=== PATIENT | female | born 1980 | race Caucasian/White ===

== ENCOUNTER 2022-12-18 11:56 | Outpatient (OUT) | payer MEDICARE, SELFPAY ==
[2022-12-18 12:57] LABS: Basophils Absolute Auto 0.1 10^3/uL (0.0-0.1); Basophils Percent Auto 1.3 % (0.2-2.0); Eosinophils Absolute Auto 0.2 10^3/uL (0.0-0.7); Eosinophils Percent Auto 3.3 % (0.9-7.0); Hematocrit 42.4 % (36.0-48.0); Immature Granulocytes Abs Auto 0.04 10^3/uL (0.00-0.03); Immature Granulocytes Pct Auto 0.6 % (0.0-0.5); Lymphocytes Absolute Auto 2.5 10^3/uL (1.2-3.8); Lymphocytes Percent Auto 39.7 % (20.5-60.0); Mean Corpuscular Hemoglobin 30.5 pg (26.7-34.0); Mean Corpuscular Volume 92.4 fL (81.0-99.0); Mean Platelet Volume 8.8 fL (9.5-13.5); Monocytes Absolute Auto 0.4 10^3/uL (0.3-0.8); Monocytes Percent Auto 6.4 % (1.7-12.0); Neutrophils Absolute Auto 3.1 10^3/uL (1.4-6.5); Neutrophils Percent Auto 48.7 % (43.0-75.0); Platelet Count 262 10^3/uL (150-450); Red Blood Count 4.59 10^6/uL (4.20-5.40); White Blood Count 6.4 10^3/uL (4.0-11.0)
[2022-12-18 13:19] LABS: Estimated Average Glucose 105 mg/dL; Glycohemoglobin A1C 5.3 % (4.5-6.2)
[2022-12-18 13:33] LABS: Alanine Aminotransferase 45 U/L (14-59); Albumin Level 3.7 g/dL (3.4-5.0); Alkaline Phosphatase 84 U/L (46-116); Anion Gap 12.4; Aspartate Amino Transferase 25 U/L (15-37); Bilirubin Total 0.6 mg/dL (0.2-1.0); Calcium 8.7 mg/dL (8.5-10.1); Carbon Dioxide 25.8 mmol/L (21.0-32.0); Chloride 105 mmol/L (98-107); Chol HDL Ratio 5.5; Cholesterol 204 mg/dL (<=200); Estimated GFR (African America >60 (>=60); Estimated GFR (Non-African Ame >60 (>=60); Globulin 3.6 g/dL; Glucose 90 mg/dL (74-106); HDL Cholesterol 37 mg/dL (40-60); Potassium 4.2 mmol/L (3.5-5.1); Sodium 139 mmol/L (136-145); Thyroid Stimulating Hormone 4.414 uIU/mL (0.358-3.740); Total Protein 7.3 g/dL (6.4-8.2); Triglycerides 202 mg/dL (<=150); VLDL CHOLESTEROL 40.4 mg/dL
[2022-12-19 11:14] LABS: Insulin 16.3 uIU/mL (2.6-24.9)
== END 2022-12-18 11:57 | disposition home or self-care (01) ==
LOC: LAB 12:05
DX: E03.9 Hypothyroidism, unspecified (principal); E16.1 Other hypoglycemia; E78.2 Mixed hyperlipidemia
CPT/HCPCS: 36415; 80053; 80061; 83036; 83525; 84436; 84443; 85025

== ENCOUNTER 2024-02-11 22:16 | Emergency (ER) | payer OTHER, MEDICARE, MEDICAID, SELFPAY ==
[2024-02-11 22:22] VITALS: BP 149/101; PULSE 95; TEMP 36.8; O2SAT 98; BMI 33.0
[2024-02-11] MEDS: LIDOCAINE HCL 1% PF 20 MG/2 ML VIAL 5 ML INJ (22:49)
[2024-02-11] MEDS: LIDOCAINE/EPINEPHRINE/TETRACAINE 3 ML GEL.PF.APP 1.5 ML TOPICAL (22:49)
[2024-02-11] MEDS: ADACEL DIPH,PERTUSS(ACELL),TET VAC/PF 0.5 ML ADULT SYRINGE IM (23:43)
--- NOTE | 2024-02-12 00:17 | ED_ITS ---
HPI HPI - General Adult General Chief complaint: Wound/Laceration Stated complaint: upper extremity injury-[facility] Time Seen by Provider: 02/11/24 22:23 Source: patient Mode of arrival: walk-in History of Present Illness HPI narrative: 43-year-old female to the emergency department with chief complaint of fingertip avulsion. Patient reports that she was at work slicing some potatoes on a mandolin slicer when she accidentally sliced her finger. She reports has been bleeding ever since. Injury occurred approximately 30 minutes prior to arrival. Last tetanus greater than 10 years. No other injuries. Otherwise at her baseline health. No blood thinners. Related Data Home Medications ?Medication ?Instructions ?Recorded ?Confirmed aripiprazole 5 mg tablet (Abilify) 5 mg PO DAILY 02/11/24 02/11/24 escitalopram oxalate 10 mg tablet 10 mg PO QDAY 02/11/24 02/11/24 levothyroxine 50 mcg tablet 50 mcg PO QAM 02/11/24 02/11/24 Allergies Allergy/AdvReac Type Severity Reaction Status Date / Time diphenhydramine Allergy Unknown Verified 02/11/24 22:21 [From Benadryl] Opioid HPI Opioid Management Most Recent Opioid Data: No Data to Display Review of Systems ROS Status of ROS 10 or more systems reviewed and unremark able except as noted in history and below PFSH PFSH Social History Little interest or pleasure in doing things: not at all Feeling down, depressed, or hopeless: not at all Exam Narrative Exam Narrative: Hand exam: Radial pulses intact. Sensation intact over the hand. There is an avulsion of approximately 6 mm of the posterior lateral fifth digit tip. No bony exposure. Approximately 3 mm of nail avulsed. No pulsatile bleeding. Constitutional Vital Signs, click to edit/add: Last Vital Signs Temp 98.2 F 02/11/24 22:22 Pulse 95 H 02/11/24 22:22 Resp 16 02/11/24 22:22 BP 149/101 H 02/11/24 22:22 Pulse Ox 98 02/11/24 22:22 O2 Del Method Room Air 02/11/24 22:22 Course Vital Signs Vital signs: Vital Signs Temperature 98.2 F 02/11/24 22:22 Pulse Rate 95 H 02/11/24 22:22 Respiratory Rate 16 02/11/24 22:22 Blood Pressure 149/101 H 02/11/24 22:22 Pulse Oximetry 98 02/11/24 22:22 Oxygen Delivery Method Room Air 02/11/24 22:22 Temperature 98.2 F 02/11/24 22:22 Pulse Rate 95 H 02/11/24 22:22 Respiratory Rate 16 02/11/24 22:22 Blood Pressure 149/101 H 02/11/24 22:22 Pulse Oximetry 98 02/11/24 22:22 Oxygen Delivery Method Room Air 02/11/24 22:22 Medical Decision Making MDM Narrative Medical decision making narrative: 43-year-old female to the emergency department chief complaint of mandolin slicer fingertip avulsion. Vital stable, the patient is afebrile. Limb is neurovascularly intact. No bony involvement. There is a significant amount of capillary bleeding however. Tetanus to be updated. Wound manage as procedure note above. Bleeding was controlled. There were no complications. Work restriction given of hand must be clean and dry. Follow-up with occupational health. Return precautions were discussed. All questions were answered. The patient was discharged home. Discharge Plan Discharge Chief Complaint: Wound/Laceration Clinical Impression: Fingertip avulsion Patient Disposition: Home, Self-Care Time of Disposition Decision: 23:42 Condition: Good Mode of Transportation: Private Vehicle Prescriptions / Home Meds: No Action escitalopram oxalate 10 mg tablet 10 mg PO QDAY levothyroxine 50 mcg tablet 50 mcg PO QAM aripiprazole [Abilify] 5 mg tablet 5 mg PO DAILY Print Language: Hungarian Instructions: Finger Laceration (ED) Additional Instructions: Keep finger clean and dry. May return to work otherwise. Referrals: [facility] - 1 week (Follow-up for wound eval and workman's comp claim) Discharge Date/Time: 02/12/24 00:00 Procedures ED Procedure Instructions Procedures Procedures: Procedure: Laceration Repair Indication: Fingertip avulsion Contraindication: None Verbal consent was obtained. Finger base was prepped with chlorhexidine. Approximately 5 cc of 1% lidocaine was used to perform a digital block at 3 points. Adequate fingertip analgesia was obtained from this. A tourniquet was placed and a bloodless field was obtained. Let was applied for vasoconstriction to the wound bed. There is no nailbed laceration to repair. No bony involvement upon exploration. No tendon involvement. No foreign body. Wound was irrigated. Dry bloodless field was again obtained. Several layers of skin glue were applied and allowed to dry completely. The tourniquet was let down and there is no further bleeding. Blood flow return to the digit. Cap refill intact. Patient tolerated the procedure and there were no complications. Td Levy DO, FAAEM
== END 2024-02-12 | disposition home or self-care (01) ==
PROVIDERS: Emergency Provider Student in an Organized Health Care Education/Training Program
DX: S61.206A Unspecified open wound of right little finger without damage to nail, initial encounter (principal); W26.8XXA Contact with other sharp object(s), not elsewhere classified, initial encounter; Z23 Encounter for immunization
CPT/HCPCS: 12001; 90471; 90715; 99284

== ENCOUNTER 2024-07-08 07:52 | Emergency (ER) | payer MEDICARE, SELFPAY ==
[2024-07-08 07:57] VITALS: BP 136/89; PULSE 118; TEMP 37.3; O2SAT 98; BMI 29.1
--- OUTSIDE RECORDS SUMMARY | 2024-07-08 08:05 | XMS_ITS | CCD ---
Author Organization [facility] Care Team Providers Care Rewrite Editor Name Role Phone BRIT HURD Unavailable Unavailable BLOOD, MORRIS Polanco Unavailable Unavailable BLOOD, MORRIS Polanco Unavailable Unavailable ROSEMARY TAVERA Unavailable Unavaillv e Unavailable Primary Care Provider UnavailChuck Barbosa Unavailable NON STAFF Primary Care Provider UnavailMD Chuck Barbosa Attending Provider NON STAFF Primary Care Provider UnavailMD Chuck Barbosa Attending Provider LY BOYLE Referring Unavailable SCHEFRENCHTER, JAZMYNE Primary Care Unavailable LY BOYLE Attending Unavailable JAZMYNE SCOTT Referring Unavailable SCHEFRENCHTER, JAZMYNE Primary Care Unavailable JAZMYNE SCOTT Attending Unavailable SCHEFRENCHTJAZMYNE DEJESUS Referring Unavailable SCHLACHTER, JAZMYNE Primary Care Unavailable JAZMYNE SCOTT Attending Unavailable JAZMYNE SCOTT Referring Unavailable SCHEFRENCHTER, JAZMYNE Primary Care Unavailable LY BOYLE Attending Unavailable GRECIAERJAZMYNE Referring Unavailable SCHLACHTER, JAZMYNE Primary Care Unavailable Rocky Sandoval Attending Unavailab le Rocky Sandoval Admitting Unavailab le NON STAFF Primary Care Unavailable Medications Current Medications Medication Drug Class(es) Dates Sig (Normalized) Sig (Original) ARIPiprazole 5 mg oral tablet (1 source) Atypical Antipsychotic Start: 03-31-2023 take 5 mg by mouth once daily Aripiprazole Active 5 MG PO Daily March 31, 2023 12:00am escitalopram 10 mg oral tablet (3 sources) Serotonin Reuptake Inhibitor Start: 03-31-2023 take 10 mg by mouth once daily Escitalopram Oxalate Active 10 MG PO Daily March 31, 2023 12:00am levothyroxine sodium 0.05 mg oral tablet (3 sources) l-Thyroxine Start: 03-31-2023 take 50 ug by mouth once daily Levothyroxine Active 50 MCG PO Daily March 31, 2023 12:00am Levothyroxine So dium 50 MCG Oral for 90 Days Active Problems Problem Classification Problem Date Documented Da te Episodic/Chronic Anxiety disorders (1 source) Anxiety disorder, unspecified; Translations: [Anxiety disorder, unspecified] Onset: 01-12-2024 Chronic Disorders of lipid metabolism (1 source) Mixed hyperlipidemia; Translations: [Mixed hyperlipidemia] Onset: 01-12-2024 Chronic Hemorrhoids (1 source) Unspecified hemorrhoids Episodic Menstrual disorders (1 source) Amenorrhea Onset: 05-26-2023 Chronic Mood disorders (1 source) Mood disorders; Translations: [Depression, unspecified] Onset: 01-12-2024 Other endocrine disorders (1 source) Other hypoglycemia; Translations: [Other hypoglycemia] Onset: 10-30-2017 Chronic Other female genital disorders (2 sources) Other specified abnormal uterine and vaginal bleeding; Translations: [Other specified abnormal uterine and vaginal bleeding] Onset: 05-05-2023 Chronic Other gastrointestinal disorders (2 sources) Diarrhea; Translations: [Diarrhea, unspecified] Episodic Other gastrointestinal disorders (1 source) Diarrhea, unspecified Episodic Other nutritional; endocrine; and metabolic disorders (1 source) Morbid (severe) obesity due to excess calories; Translations: [Morbid (severe) obesity due to excess calories] Onset: 01-05-2020 Chronic Other screening for suspected conditions (not mental disorders or infectious disease) (1 source) Encounter for screening mammogram for malignant neoplasm of breast; Translations: [Encounter for screening mammogram for malignant neoplasm of breast] Onset: 01-12-2024 Episodic Substance-related disorders (2 sources) Other psychoactive substance abuse, uncomplicated; Translations: [Opioid dependence, uncomplicated] Onset: 01-12-2024 Chronic Substance-related disorders (1 source) Poisoning by heroin, accidental (unintentional), initial encounter; Translations: [Poisoning by heroin, accidental (unintentional), initial encounter] Onset: 11-26-2017 Thyroid disorders (1 source) Hypothyroidism, unspecified; Translations: [Hypothyroidism, unspecified] Onset: 01-12-2024 Chronic Unclassified (1 source) Annual Exam Onset: 01-12-2024 Unclassified (1 source) Menstrual Problem Onset: 05-05-2023 Results Test Name Value Interpretation Reference Range Facility COMPLETE BLOOD COUNTon 05-26 Erythrocyte distribution width (RBC) [Ratio] 14.1 % Normal 11.5-15.0 [facility] Comment on above: Performed By: #### 2 842-3, 49207-4, 59164-8, CBC #### [facility] ([id number]) [address], [address] [place] [address] Hematocrit (Bld) [Volume fraction] 39.7 % Normal 35-47 [facility] Comment on above: Performed By: #### 2 842-3, 82497-5, 32415-2, CBC #### [facility] ([id number]) [address], [address] [place] [address] Hemoglobin (Bld) [Mass/Vol] 13.5 g/dL Normal 11.7-15.5 [facility] Comment on above: Performed By: #### 2 842-3, 22764-4, 91275-8, CBC #### [facility] ([id number]) [address], [facility] [address] [place] [address] MCH (RBC) [Entitic mass] 30.3 pg Normal 27-34 [facility] Comment on above: Performed By: #### 2 842-3, 40941-3, 66393-5, CBC #### [facility] ([id number]) [address], [facility] [address] [place] [address] MCHC (RBC) [Mass/Vol] 33.9 g/dL Normal 32-36 [facility] Comment on above: Performed By: #### 2 842-3, 56489-9, 00369-8, CBC #### [facility] ([id number]) [address], [address] [place] [address] MCV (RBC) [Entitic vol] 89 fL Normal 80-100 P [facility] Comment on above: Performed By: #### 2 842-3, 91873-4, 71762-0, CBC #### [facility] ([id number]) [address], [address] [place] [address] Platelet mean volume (Bld) [Entitic vol] 6.7 fL Low 7-12 [facility] Comment on above: Performed By: #### 2 842-3, 83531-4, 58996-1, CBC #### [facility] ([id number]) [address], [address] [place] [address] Platelets (Bld) [#/Vol] 338 10*3/uL Normal 150-450 [facility] Comment on above: Performed By: #### 2 842-3, 71386-2, 12226-3, CBC #### [facility] ([id number]) [address], [address] [place] [address] RBC COUNT 4.44 X10E12/L Normal 3.80-5.20 [facility] Comment on above: Performed By: #### 2 842-3, 73472-5, 22948-4, CBC #### [facility] ([id number]) [address], [address] [place] [address] WBC (Bld) [#/Vol] 7.2 10*3/uL Normal 4.0-11.0 [facility] Comment on above: Performed By: #### 2 842-3, 44950-7, 38528-1, CBC #### [facility] ([id number]) [address], [address] [place] [address] Follitropin Qnon 05-26-2023 FOLLICLE STIM HORMONE 5.1 mIU/mL Normal [facility] Comment on above: Result Comment: NORMAL FEMALE Luteal 1.8-5.1 mIU/mL Follicular 3.8-8.8 mIU/mL Mid Cycle 4.5-22.5 mIU/mL Post Sara 16.7-113.6 mIU/mL Performed By: #### 2 842-3, 90504-7, 14770-4, CBC #### [facility] ([id number]) [address], [address] [place] [address] Lutropin Qnon 05-26-2023 LUTEINIZING HORMONE 5.3 mIU/mL Normal [facility] Comment on above: Result Comment: NORMAL FEMALE Follicular 2.1-10.9 mIU/mL Mid Cycle 19.2-103 mIU/mL Luteal 1.2-12.9 mIU/mL Post Bardolph 10.9-58.6 mIU/mL Performed By: #### 2 842-3, 38209-1, 76029-7, CBC #### [facility] ([id number]) [address], [address] [place] [address] Prolactin [Mass/Vol]on 05-26 PROLACTIN 7.8 ng/mL Normal 3.3-26.7 [facility] Comment on above: Performed By: #### 2 842-3, 85808-9, 98070-5, CBC #### [facility] ([id number]) [address], [address] [place] [address] HCG ( test) Kenyetta millan Ql (U)Ordered By: Chuck Souza on 03-31-2023 HCG ( test) Ql (U) Negative [facility] No Panel InformationOrdered By: Chuck Souza on 03-31-2023 Ova and Parasite Result 1 N/A [facility] Ova or parasites identificat ionOrdered By: Imad Asaad on 03-31-2023 Ova and parasites identified LM Nom (Unsp spec) N/A [facility] Stool ova and parasites iden tification by concentrationOrdered By: Imad Asaad on 03-31-2023 Ova and parasites identified Concentration Nom (Stl) N/A [facility] Stool ova and parasites iden tification by trichrome stainOrdered By: Imad Asaad on 03-31-2023 Ova and parasites identified Trichrome stain Nom (Stl) N/A [facility] C reactive protein [Mass/vol ume] in Serum or PlasmaOrdered By: Imad Asaad on 03-26-2023 CRP [Mass/Vol] 1.5 mg/dL 0.0-0.5 [facility] Erythrocyte sedimentation ra te by Photometric methodOrdered By: ad Asaad on 03-26-2023 ESR Photometric method (Bld) [Velocity] 17 mm/hr 0-14 [facility] HIV 1 and HIV-2 antibody ass ay with HIV-1 p24 antigen detectionOrdered By: Imad Asaad on 03-26-2023 HIV 1+2 Ab+HIV1 p24 Ag IA Ql Non-Reactive Non Reactive [facility] Comment on above: HIV NegativeHIV-1/HI V-2 antibodies and HIV-1 p24 antigen were NOTdetected. There is no laboratory evidence of HIV infection.Performed at: [address] [id number] Director: Terell Hoyos PhD, Phone: [phone] IgA [Mass/volume] in Serum o r PlasmaOrdered By: ad Asaad on 03-26-2023 IgA [Mass/Vol] 255 mg/dL . [facility] Comment on above: No patient age and/o r gender provided or N placed in gender box Age Male Female 0 - 10 days 2 - 362 2 - 362 11 days - 6 months 8 - 37 8 - 32 7 - 11 months 12 - 58 11 - 45 1 - 3 years 21 - 111 19 - 102 4 - 15 years 52 - 221 51 - 220 16 - 60 years 90 - 386 87 - 352 61 - 70 years 61 - 437 87 - 352 >70 years 61 - 437 64 - 422Performed at: - [facility] [address] [place], [place] [id number] Director: Terell Hoyos PhD, Phone: [phone] No Panel InformationOrdered By: Chuck Souza on 03-26-2023 Endomysial IgA Antibody Negative Negative F [facility] Serum gliadin peptide IgA an tibody assay (units/volume)Ordered By: Chuck Souza on 03-26-2023 Gliadin peptide IgA Qn (S) 26 units 0-19 [facility] Comment on above: Negative 0 - 19 Weak Positive 20 - 30 Moderate to Strong Positive >30 Serum gliadin peptide IgG an tibody assay (units/volume)Ordered By: Chuck Souza on 03-26-2023 Gliadin peptide IgG Qn (S) 2 units 0-19 [facility] Comment on above: Negative 0 - 19 Weak Positive 20 - 30 Moderate to Strong Positive >30 Serum tissue transglutaminas e (tTG) IgA antibody assay (units/volume)Ordered By: Chuck Souza on 03-26-2023 tTG IgA Qn (S) 2 U/mL 0-3 [facility] Comment on above: Negative 0 - 3 Weak Positive 4 - 10 Positive >10 Tissue Transglutaminase (tTG) has been identified as the endomysial antigen. Studies have demonstr- ated that endomysial IgA antibodies have over 99% specificity for gluten sensitive enteropathy. Serum tissue transglutaminas e (tTG) IgG antibody assay (units/volume)Ordered By: Chuck Souza on 03-26-2023 tTG IgG Qn (S) 3 U/mL 0-5 [facility] Comment on above: Negative 0 - 5 Weak Positive 6 - 9 Positive >9 Thyrotropin [Units/volume] i n Serum or PlasmaOrdered By: Chuck Souza on 03-26-2023 TSH Qn 4.27 m[IU]/L 0.45-5.33 [facility] Acetaminophenon 11-27-2017 Acetaminophen mass conc <10 Low 10-30 M [facility] Comment on above: Performed By: #### A CET ####[facility] [address] [place] [address] CBCon 11-27-2017 Erythrocyte distribution width Auto Ratio (RBC) 13.3 % Normal 11.5-14.5 [facility] Comment on above: Performed By: #### C BC, MG, CMPX ####[address] [address] Erythrocytes (RBC) 3.76 10*6/uL Low 4.0-5.2 [facility] Comment on above: Performed By: #### C BC, MG, CMPX ####[address] [address] Hematocrit (HCT) 34.9 % Low 36-46 [facility] Comment on above: Performed By: #### C BC, MG, CMPX ####[address] [address] Hemoglobin mass conc (Bld) 11.5 g/dL Low 12.0-16.0 [facility] Comment on above: Performed By: #### C BC, MG, CMPX ####[address] [address] MCH 30.7 pg Normal 26-34 [facility] Comment on above: Performed By: #### C BC, MG, CMPX ####[address] [address] MCHC mass conc (RBC) 33.0 g/dL Normal 31-37 [facility] Comment on above: Performed By: #### C BC, MG, CMPX ####[address] [address] MCV 93.0 fL Normal 80-100 [facility] Comment on above: Performed By: #### C BC, MG, CMPX ####[facility] [place] [address] Platelet mean volume (PMV) 6.9 fL Normal 6.0-12.0 [facility] Comment on above: Performed By: #### C BC, MG, CMPX ####[address] [address] Platelets 226 10*3/uL Normal 130-400 [facility] Comment on above: Performed By: #### C BC, MG, CMPX ####[address] [address] WBC (Leukocytes) 6.7 10*3/uL Normal 3.5-11.0 [facility] Comment on above: Performed By: #### C BC, MG, CMPX ####[address] [address] Erythrocytes (RBC) NOT REPORTED Normal [facility] Comment on above: Performed By: #### C BC, MG, CMPX ####[address] [address] Comp Metabolic Pr/rfx MGon 0 11-27-2017 (cont.) Normal [facility] Comment on above: Result Comment: Aver age GFR for 30-39 years old: 107 mL/min/1.73sq mChronic Kidney Disease: <60 mL/min/1.73sq mKidney failure: <15 mL/min/1.73sq meGFR calculated using average adult body mass. Additional eGFR calculator available at:http://www.[employer].com/multiple_crcl_2012.htm Performed By: #### C BC, MG, CMPX ####[address] [address] Alanine aminotransferase (ALT) 29 U/L Normal 5-33 [facility] Comment on above: Performed By: #### C BC, MG, CMPX ####[address] [address] Albumin 3.5 g/dL Normal 3.5-5.2 [facility] Comment on above: Performed By: #### C BC, MG, CMPX ####[address] [address] Alkaline Phos 81 U/L Normal 35-104 [facility] Comment on above: Performed By: #### C BC, MG, CMPX ####[address] [address] Anion gap 9 mmol/L Normal 9-17 [facility] Comment on above: Performed By: #### C BC, MG, CMPX ####[address] [address] Aspartate aminotransferase (AST) 37 U/L High <32 [facility] Comment on above: Performed By: #### C BC, MG, CMPX ####[address] [address] Bilirubin Ql (U) 0.40 mg/dL Normal 0.3-1.2 [facility] Comment on above: Performed By: #### C BC, MG, CMPX ####[address] [address] BUN/CRE Ratio 14 Normal 9-20 [facility] Comment on above: Performed By: #### C BC, MG, CMPX ####[address] [address] Calcium 8.2 mg/dL Low 8.6-10.4 [facility] Comment on above: Performed By: #### C BC, MG, CMPX ####[facility] [place] [address].[place] [address] Chloride 100 mmol/L Normal 98-107 [facility] Comment on above: Performed By: #### C BC, MG, CMPX ####[address] [place] [address] CO2 28 mmol/L Normal 20-31 [facility] Comment on above: Performed By: #### C BC, MG, CMPX ####[address] [place] [address] Creatinine 0.63 mg/dL Normal 0.50-0.90 [facility] Comment on above: Performed By: #### C BC, MG, CMPX ####[address] [address] eGFR (non-black) mL/min/{1.73_m2} Normal >60 [facility] Comment on above: Performed By: #### C BC, MG, CMPX ####[address] [place] [address] Glucose mass conc 107 mg/dL High 70-99 [facility] Comment on above: Performed By: #### C BC, MG, CMPX ####[address] [place] [address] Potassium molar conc 3.5 mmol/L Low 3.7-5.3 [facility] Comment on above: Performed By: #### C BC, MG, CMPX ####[address] [place] [address] Protein 5.4 g/dL Low 6.4-8.3 [facility] Comment on above: Performed By: #### C BC, MG, CMPX ####[address] [place] [address] Sodium 137 mmol/L Normal 135-144 [facility] Comment on above: Performed By: #### C BC, MG, CMPX ####[address] [address] Urea nitrogen 9 mg/dL Normal 6-20 [facility] Comment on above: Performed By: #### C BC, MG, CMPX ####[address] [address] Albumin/Globulin Ratio NOT REPORTED Normal 1.0-2.5 [facility] Comment on above: Performed By: #### C BC, MG, CMPX ####[address] [address] Staging: NOT REPORTED Normal [facility] Comment on above: Performed By: #### C BC, MG, CMPX ####[address] [address] Magnesiumon 11-27-2017 Magnesium 1.9 mg/dL Normal 1.6-2.6 [facility] Comment on above: Performed By: #### C BC, MG, CMPX ####[address] [address] Basic Metabolic Profon 11-262018 (cont.) Normal [facility] Comment on above: Result Comment: Aver age GFR for 30-39 years old: 107 mL/min/1.73sq mChronic Kidney Disease: <60 mL/min/1.73sq mKidney failure: <15 mL/min/1.73sq meGFR calculated using average adult body mass. Additional eGFR calculator available at:http://www.[employer].com/multiple_crcl_2012.htm Anion gap 10 mmol/L Normal 9-17 [facility] Calcium 8.7 mg/dL Normal 8.6-10.4 [facility] Chloride 104 mmol/L Normal 98-107 [facility] CO2 29 mmol/L Normal 20-31 [facility] Creatinine 0.70 mg/dL Normal 0.50-0.90 [facility] eGFR (non-black) mL/min/{1.73_m2} Normal >60 [facility] Glucose mass conc 96 mg/dL Normal 70-99 [facility] Potassium molar conc 3.6 mmol/L Low 3.7-5.3 [facility] Sodium 143 mmol/L Normal 135-144 [facility] Urea nitrogen 11 mg/dL Normal 6-20 [facility] BUN/CRE Ratio NOT REPORTED Normal 9-20 [facility] Staging: NOT REPORTED Normal [facility] CBC with Diffon 11-26-2017 Abs. Basophil 0.00 k/uL Normal 0.0-0.2 [facility] Abs.Neutrophil (Seg) 2.60 k/uL Normal 1.8-7.7 [facility] Basophils/100 WBC Auto (Bld) 1 % Normal 0-2 [facility] Eosinophils 0.10 10*3/uL Normal 0.0-0.4 [facility] Eosinophils/100 leukocytes 3 % Normal 1-4 [facility] Erythrocyte distribution width Auto Ratio (RBC) 13.3 % Normal 12.5-15.4 [facility] Erythrocytes (RBC) 4.10 10*6/uL Normal 4.0-5.2 [facility] Hematocrit (HCT) 37.9 % Normal 36-46 [facility] Hemoglobin mass conc (Bld) 12.6 g/dL Normal 12.0-16.0 [facility] Lymphocytes 2.00 10*3/uL Normal 1.0-4.8 [facility] Lymphocytes/100 leukocytes 39 % Normal 24-44 [facility] MCH 30.7 pg Normal 26-34 [facility] MCHC mass conc (RBC) 33.3 g/dL Normal 31-37 [facility] MCV 92.2 fL Normal 80-100 [facility] Monocytes 0.40 10*3/uL Normal 0.1-1.2 [facility] Monocytes/100 leukocytes 8 % Normal 2-11 [facility] Neutrophil (Seg) 49 % Normal 36-66 [facility] Platelet mean volume (PMV) 7.4 fL Normal 6.0-12.0 [facility] Platelets 262 10*3/uL Normal 140-450 [facility] WBC (Leukocytes) 5.2 10*3/uL Normal 3.5-11.0 [facility] Auto Diff Performed NOT REPORTED Normal [facility] Erythrocyte morphology NOT REPORTED Normal [facility] Erythrocytes (RBC) NOT REPORTED Normal [facility] Granulocytes/100 WBC (Bld) NOT REPORTED Normal 0.00-0.30 [facility] Immature granulocytes #/vol (Bld) NOT REPORTED Normal 0 [facility] Platelets NOT REPORTED Normal [facility] WBC Morphology NOT REPORTED Normal [facility] Drug Scr, Abuse, Uron 2017 Amphetamine(s),Ur Negative Normal NEG [facility] Comment on above: Result Comment: (Pos itive cutoff 1000 ng/mL) Barbiturate(s),Ur Negative Normal NEG [facility] Comment on above: Result Comment: (Pos itive cutoff 200 ng/mL) Base excess Positive Abnormal NEG [facility] Comment on above: Result Comment: (Pos itive cutoff 300 ng/mL) Benzodiazepine(s) Negative Normal NEG [facility] Comment on above: Result Comment: (Pos itive cutoff 200 ng/mL) Cannabinoid(s),Ur Negative Normal NEG [facility] Comment on above: Result Comment: (Pos itive cutoff 50 ng/mL) Interpretive Info Assay provides medic al screening only. The absence of expected drug(s) and/or Normal [facility] Comment on above: Result Comment: meta bolite(s) may indicate diluted or adulterated urine, limitations of testing or timing of collection.Testing for legal purposes should be confirmed by another method. To request confirmation of test result, please call the lab within 7 days of sample submission. Opiate(s), Ur Positive Abnormal NEG [facility] Comment on above: Result Comment: (Pos itive cutoff 300 ng/mL) Oxycodone, Urine Negative Normal NEG [facility] Comment on above: Result Comment: (Pos itive cutoff 100 ng/mL) Phencyclidine, Ur Negative Normal NEG [facility] Comment on above: Result Comment: (Pos itive cutoff 25 ng/mL) Urine, methadone presence Negative Normal NEG [facility] Comment on above: Result Comment: (Pos itive cutoff 300 ng/mL) Buprenorphrine, Ur NOT REPORTED Normal NEG [facility] MDMA, Urine NOT REPORTED Normal NEG [facility] Methamphetamine, Ur NOT REPORTED Normal NEG [facility] Propoxyphene,Urine NOT REPORTED Normal NEG [facility] Urine, tricyclic antidepressants NOT REPORTED Normal NEG [facility] Ethanol Alcoholon 11-26-2017 Ethanol mg/dL Normal <10 [facility] Ethanol percent <0.010 Normal [facility] HCG, ,Urineon 11-26 HCG.beta subunit ( test) Ql (U) Negative Normal NEG [facility] Comment on above: Result Comment: Spec imens with hCG levels near the threshold of the test (25 mIU/mL) may give a negative or indeterminate result. In such cases, another test should be performed with a new specimen in 48-72 hours. If early is suspected clinically in this setting, correlation with quantitative serum b-hCG level is suggested. XR CHEST PORTABLEon 11-27-19 18 XR CHEST PORTABLE EXAMINATION:SINGLE X RAY VIEW OF THE CHEST11/26/2017 8:52 pmCOMPARISON:None.HISTO RY:ORDERING SYSTEM PROVIDED HISTORY: overdoseTECHNOLOGIST PROVIDED HISTORY:Reason for exam:->overdoseOrdering Physician Provided Reason for Exam: heroin overdoseAcuity: AcuteType of Exam: InitialAdditional signs and symptoms: NARelevant Medical/Surgical History: NAFINDINGS:No infiltrate or consolidation or effusion is identified. The heart size isnormal.IMPRESSION: Clear lungs.Interpreted by:HOSEA Houigned by:Junior Cortez MD11/26/17inal result Normal [facility] Vital Signs Date Time Vital Sign Value Performing Clinician Facility 03-31-2023 10:19-0500 Diastolic blood pressure 68 mm[Hg] [facility] 03-31-2023 10:19-0500 Heart rate 69 /min [facility] 03-31-2023 10:19-0500 Respiratory rate 16 /min [facility] 03-31-2023 10:19-0500 SaO2% (BldA) [Mass fraction] 96 % [facility] 03-31-2023 10:19-0500 Systolic blood pressure 110 mm[Hg] [facility] 03-31-2023 08:14-0500 Body height 175.26 cm [facility] 03-31-2023 08:14-0500 Body weight 111.13 kg [facility] 03-02-2023 13:00-0400 Body height 175.26 cm Imad Asaad Other [facility] Other 03-02-2023 13:00-0400 Body mass index (BMI) [Ratio] 36.47 kg/m2 Imad Asaad Other [facility] Other 03-02-2023 13:00-0400 Body weight 112.04 kg Imad Asaad Other [facility] Other 03-02-2023 13:00-0400 Diastolic blood pressure 70 mm[Hg] Imad Asaad Other [facility] Other 03-02-2023 13:00-0400 Systolic blood pressure 122 mm[Hg] Imad Asaad Other [facility] Other Encounters Encounter Date Encounter Type Care Provider Facility Start: 03-30-2024 ambulatory Rocky Sandoval [facility] acility:[facility] Start: 01-12-2024 End: 01-12-2024 ambulatory [facility] Start: 01-12-2024 Encounter for genera l adult medical examination without abnormal findings [facility] Start: 06-18-2023 End: 06-18-2023 ambulatory [facility] Start: 05-26-2023 End: 05-27-2023 ambulatory [facility] Start: 05-26-2023 ambulatory [facility] Start: 05-05-2023 ambulatory [facility] Start: 04-06-2023 End: 04-06-2023 ambulatory Imad Asaad Other [facility] Other Start: 04-06-2023 Telephone encounter Imad Asaad [facility] Start: 03-31-2023 End: 03-31-2023 Admission to same day surgery center [facility] Work Phone: Start: 03-31-2023 End: 03-31-2023 ambulatory NON STAFF [facility] Work Phone: Start: 03-26-2023 End: 03-26-2023 ambulatory NON STAFF [facility] Work Phone: Start: 03-26-2023 End: 03-26-2023 Patient encounter procedure [facility] [place] Work Phone: Start: 03-02-2023 End: 03-02-2023 ambulatory Imad Asaad Other [facility] Other Start: 03-02-2023 Office outpatient ne w 45 minutes Imad Asaad [facility] Start: 06-09-2018 End: 06-09-2018 Letter encounter Raisa Schofield [facility] at [facility] Start: 04-12-2018 Patient encounter ROSEMARY SMITH IN Facility:[facility] Start: 11-26-2017 End: 11-27-2017 Evaluation and management of inpatient BRIT HURD [facility] Procedures Date Procedure Procedure Detail Performing Clinician Start: 06-18-2023 Follow-up visit Follow-up JAZMYNE SCOTT Start: 03-31-2023 Microbial ova-parasi te examination, fecal Start: 03-31-2023 Ova and Parasite Result 1 Start: 03-31-2023 Ova OR parasites identification Start: 03-31-2023 Colonoscopy Start: 11-27-2017 DISCHARGE PATIENT BRIT HURD Start: 11-27-2017 INITIATE OXYGEN THER APY PROTOCOL BRIT VICKEY Start: 11-27-2017 DIET GENERAL BRIT AUSTIN IS Start: 11-27-2017 Assay of magnesium RBIT HURD Start: 11-27-2017 Blood count complete automated BRIT HURD Start: 11-27-2017 COMPREHENSIVE METABO LIC PANEL W/ REFLEX TO MG FOR LOW K BRIT HURD Start: 11-27-2017 EKG 12-LEAD BRIT AUSTIN IS Start: 11-27-2017 EKG REPORT BRIT GUTIERREZ Start: 11-27-2017 ACETAMINOPHEN LEVEL TOD Jakob HURD Start: 11-27-2017 PATIENT STATUS (FROM ED OR OR/PROCEDURAL) BRIT VICKEY Start: 11-27-2017 INITIATE OXYGEN THER APY PROTOCOL BRIT HURD Start: 11-27-2017 NURSING COMMUNICATION T KARTHIKEYAN VICKEY Start: 11-27-2017 PLACE INTERMITTENT P NEUMATIC COMPRESSION DEVICE BRIT HURD Start: 11-27-2017 TOBACCO CESSATION EDUCATION BRIT HURD Start: 11-27-2017 ADVANCE DIET TOLE RATED (NURSING COMMUNICATION) BRIT VICKEY Start: 11-27-2017 DAILY WEIGHTS BRIT GUERRERO CIS Start: 11-27-2017 FULL CODE BRIT AUSTIN IS Start: 11-27-2017 INTAKE AND OUTPUT BRIT HURD Start: 11-27-2017 MISCELLANEOUS NURSIN G CARE ORDER (SPECIFY) BRIT HURD Start: 11-27-2017 NOTIFY PHYSICIAN (SPECIFY) BRIT HURD Start: 11-27-2017 TELEMETRY MONITORING TO DICK VICKEY Start: 11-27-2017 VITAL SIGNS BRIT AUSTIN IS Start: 11-27-2017 TRANSFER PATIENT BRIT GILBERT Start: 11-27-2017 PATIENT STATUS (DIRECT) BRIT HURD Start: 11-27-2017 PATIENT STATUS (FROM ED OR OR/PROCEDURAL) BRIT HURD Start: 11-26-2017 INSERT PERIPHERAL IV TO DICK HURD Start: 11-26-2017 Radiologic exam ches t single view BRIT HURD Start: 11-26-2017 URINE DRUG SCREEN BRIT HURD Start: 11-26-2017 Urine test visual color cmprsn meths BRIT HURD Start: 11-26-2017 Basic metabolic pane l calcium total BRIT HURD Start: 11-26-2017 Blood count complete auto&auto difrntl wbc BRIT HURD Start: 11-26-2017 ETHANOL BRIT AUSTIN IS Start: 11-26-2017 EKG 12-LEAD BRIT AUSTIN IS Start: 11-26-2017 EKG REPORT BRIT AUSTIN IS Plan of Treatment Date Care Activity Detail Author Start: 03-31-2023 Ova and Parasite Concentrate Exam Ova and Parasite Concentrate Exam [facility] Start: 03-31-2023 [facility] Start: 03-31-2023 [facility] Start: 03-26-2023 [facility] Start: 01-23-2018 Influenza vaccination INFLUENZA VACCINE (#1) [facility] Work Phone: Start: 2003 Screening for malignant neoplasm of cervix PAP SMEAR DISCUSSION [facility] Work Phone: Start: 2001 Third diphtheria, tetanus and acellular pertussis (DTaP) vaccination TDAP (ADULT) [facility] Work Phone: Start: 2000 Tetanus vaccination TETANUS [facility] Work Phone: Start: 1995 HIV screening HIV SCREENING DISCUSSION [facility] Work Phone: Bacteria identified in Stool by Culture [facility] Calprotectin [Mass/m ass] in Stool [facility] Endomysial antibody IgA level [facility] Gliadin peptide IgA Ab [Units/volume] in Serum [facility] Gliadin peptide IgG Ab [Units/volume] in Serum [facility] HIV 1+2 Ab+HIV1 p24 Ag [Presence] in Serum or Plasma by Immunoassay [facility] IgA [Mass/volume] in Serum or Plasma [facility] Tissue transglutamin ase IgA Ab [Units/volume] in Serum [facility] Tissue transglutamin ase IgG Ab [Units/volume] in Serum [facility] Payers Date Payer Category Payer Self-pay 2022 Private Health Insurance [id number] 2017 Medicare [id number] 2017 Medicaid [id number] 1980 Unknown [id number] 1980 Unknown [id number] 1980 Unknown [id number] 1980 Unknown [id number] 1980 Unknown [id number] Medicaid [id number] 2.1 [id number] Social History Date Type Detail Facility Tobacco smoking status NHIS Unknown if ever smoked [facility] Work Phone: Sex Assigned At Not on file [facility] Work Phone: Sex Assigned At Sex Assigned At Bir th [facility] Other Start: 1980 Sex Assigned At Female F [facility] Goals Date Patient Goal Desired Activity /State Procedure note 03-31-2023 Note Date & Type Note Facility 03-31-2023 Procedure note [facility] Evaluation note 03-02-2023 Note Date & Type Note Facility 03-02-2023 Evaluation note Encounter Date Diagnosis Assessment Notes Feb, Diarrhea (ICD-10 - R19.7) Feb, Hemorrhoid (ICD-10 - K64.9) [facility] [employer] Other Evaluation note Note Date & Type Note Facility Evaluation note No assessment information availa aliza [facility] Work Phone: Evaluation note Note Date & Type Note Facility Evaluation note No Information [facility] [employer] Other History and physical note Note Date & Type Note Facility History and physical note Note Date/Time March 31, 2023 9 :29am [facility] [address] [place] [address] Gastroenterology H&P Signed Patient: Nilsa Pulido MR #: [id number] : 1980 Acct:[id number] Age/Sex: 42 / F Adm Date: 3 Loc: Room: Type: [facility] Attending Dr: Chuck Souza MD Copies to: NON STAFF Chuck Souza MD~ Date of Service: 03/31/2023 HISTORY & PHYSICAL: Patient's history with special attention to the cardiovascular, pulmonary systems and the current problem was reviewed with the patient immediately prior to the procedure. Present medications and doses reviewed in the EMR. Allergies and pertinent laboratory tests were also reviewedat this time in the EMR. The physical examination, as below, was then performed. Indication, assessment and HPI: 42-year-old female here for colonoscopy for evaluation of diarrhea and hematochezia Family history of GI malignancy? No PHYSICAL EXAMINATION Mouth and Pharynx : Moist mucus membranes, normal dentition Cardiac: Regular rate, regular rhythm Pulmonary: Clear to auscultation bilaterally, no wheezing Neurological: Alert and oriented x3, no focal deficits noted Abdomen: Abdomen soft, non-tender REVIEW OF SYSTEMS Constitutional: Denies malaise, fevers Cardiovascular: Denies chest pain, palpitations Respiratory: Denies shortness of breath, wheezing Gastrointestinal: Per HPI Genitourinary: Denies dysuria, polyuria Musculoskeletal: Denies joint swelling, joint stiffness Neurological: Denies numbness, tingling Integumentary: Denies rashes, skin lesions Endocrine: Denies fatigue, weight loss Written informed consent obtained from the patient. Risks (including but not limited to perforation, infection, bloating, bleeding, need for emergent surgeryand loss of life), benefits and alternatives explained and questions answered. The patient verbalized understanding. Based on history patient is an appropriate candidate for the procedure. Chuck Souza M.D. Documented By: Chuck Souza MD 03/31/23927 Signed By: <Electronically signed by Chuck Souza MD> 03/31/23927 [facility] Work Phone: History general Narrative - Reported Note Date & Type Note Facility History general Narrative - Reported Type Medical History chronic depression Medical History Hypothyroidism Surgical History kidney stone Hospitalization History see above [facility] Other Hospital Discharge instructions Note Date & Type Note Facility Hospital Discharge instructions Additional Instructions DISCHARGE INSTRUCTIONS FOR COLONOSCOPY WHAT TO EXPECT: - You may feel full, gassy or cramping after your procedure. In some cases, this may be from a few hours to a day. Walking may help relieve the discomfort. - You should begin to recover from anesthesia within 1 hour of the procedure, however may feel groggy for the next 24 hours. DO's AND DON'Ts: - Call your doctor right away if you have a hard abdomen, severe pain, are passing lots of bright red blood or clots. - Call your doctor if you develop any rashes, hives or difficulty breathing. - Let your doctor know if you have not had a bowel movement by 3 days after your procedure. - If you take 81 mg aspirin for your heart it is safe to resume this medication. - If you take other blood thinner medications your doctor will instruct you when these can safely be resumed. - Do NOT drive for 24 hours. - Do NOT operate machinery such as power tools, lawn mowers, snow blowers, sewing machines, etc. for 24 hours. - Avoid alcoholic beverages and drugs for allergies, nerves, or sleep. - Do NOT stay alone. Do NOT leave your child unattended. - Do NOT make important personal or business decisions or sign any legal documents. - Eat solid foods and drink liquids in smaller amounts than usual until normal appetite returns. If you should experience an upset stomach, liquids high in sugar content (soda, Blaze-Aid, non-acid juices) are recommended. - You can resume normal activities tomorrow. FOLLOW UP & RECOMMENDATIONS: -Notify the doctor if you have any problems. -Repeat colonoscopy next available due to inadequate prep -Follow up pathology -Follow up in the office -Office number [phone]. [facility] Work Phone: Summary Purpose Family History No Family History Records Found Relationship Condition Age at Onset Recorded Date/T judah family member Dementia Unknown Myocardial infarction Unknown Not Specified Diabetes mellitus Unknown Advance Directives No Advanced Directives Records Found Advance Directive Response Recorded Date/ Time Advance Directives No March 26, 2023 7:11am Advance Directive Response Recorded Date/ Time Advance Directives No March 27, 2023 1:36pm Chief Complaint and Reason for Visit Chief Complaint r19.7 Chief Complaint r19.7 Diarrhea Additional Source Comments INFORMATION SOURCE (unrecogn ized section and content) DATE CREATED AUTHOR 11/27/2017 [facility] DATE CREATED AUTHOR AUTHOR'S ORGANIZ ATION 03/19/2018 [facility] DATE CREATED AUTHOR AUTHOR'S ORGANIZ ATION 05/30/2023 [facility] DATE CREATED AUTHOR AUTHOR'S ORGANIZ ATION 01/14/2024 [facility] DATE CREATED AUTHOR AUTHOR'S ORGANIZ ATION 04/05/2024 [facility] REASON FOR VISIT (unrecogniz ed section and content) PATIENT IS HERE AT [facility] Care Teams (unrecognized sec tion and content) Team Status: Active Member Role Status Dates NON STAFF Primary Care Provider Active Team Status: Inactive Member Role Status Dates NON STAFF Primary Care Provider Active Chuck Souza MD Attending Provider Active Goals (unrecognized section and content) Goals may be documented in a n alternate section FOR RECORDS PERTAINING TO PATIENTS WHO ARE OR HAVE BEEN ENROLLED IN A CHEMICAL DEPENDENCY/SUBSTANCEABUSE PROGRAM, SOME INFORMATION MAY BE OMITTED. This clinical summary was aggregated from multiple sources. Caution should be exercised in using it in the provision of clinical care. This summary normalizes information from multiple sources, and as a consequence, information in this document may materially change the coding, format and clinical context of patient data. In addition, data may be omitted in some cases. CLINICAL DECISIONS SHOULD BE BASED ON THE PRIMARY CLINICAL RECORDS. [employer] provides no warranty or guarantee of the accuracy or completeness of information in this document.
[2024-07-08 08:31] VITALS: BP 136/88; PULSE 106; O2SAT 98
--- NOTE | 2024-07-08 08:31 | ED_ITS ---
HPI HPI - General Adult General Chief complaint: Upper Respiratory Infection Stated complaint: COUGHING POSSIBLE FEVER Time Seen by Provider: 07/08/24 08:09 Source: patient Mode of arrival: walk-in History of Present Illness HPI narrative: Patient is a 44-year-old female who is presenting to the ER with chief complaint of flulike symptoms that started yesterday. Patient's had friends that have been sick as well. Patient did not get her flu shot this year. Patient has mild headache, mild myalgia, arthralgia. Patient is having intermittent hot and cold spells. No nausea, vomiting, diarrhea. Patient is having dry cough. Sinus congestion. Patient was sent from work to the ER to be evaluated. All systems are negative except as noted/marked. All systems reviewed and otherwise negative. Nurses note and vital signs reviewed and patient is not hypoxic. General: The patient appears well and in no apparent distress. Patient is resting comfortably on cart. Patient is not toxic, lethargic, or listless Skin: Warm, dry, no pallor noted. There is no rash noted. No petechiae, purpura. Head: Normocephalic, atraumatic; mild tenderness to palpation to bilateral frontal maxillary sinus. Eye: Normal conjunctiva, no drainage, EOMI. PERRL Ears, Nose, Mouth, and Throat: oral mucosa is moist. Patient has clear drainage to the posterior pharynx. Mild cobblestoning, no unilateral swelling. No bilateral anterior or posterior cervical lymphadenopathy. Airway patent. No trismus. Nares patent. Mouth without vesicles. Cardiovascular: Regular Rate and Rhythm, no murmur, gallop, rub Respiratory: Patient is in no distress, no accessory muscle use, lungs are clear to auscultation, no wheezing, rales or rhonchi Back: non-tender, GI: no tenderness Musculoskeletal: Patient has full range of motion of all of the extremities, no motor, sensory, or focal neurological deficits Neurological: A&O x4, normal speech Psychiatric: Cooperative Related Data Previous Rx's ?Medication ?Instructions ?Recorded ondansetron 4 mg disintegrating 4 mg PO Q4H PRN nausea and 07/08/24 tablet vomiting 3 days #6 tabs oseltamivir 75 mg capsule (Tamiflu) 75 mg PO BID 5 days #10 caps 07/08/24 Allergies Allergy/AdvReac Type Severity Reaction Status Date / Time diphenhydramine (From Allergy Unknown Verified 02/11/24 22:21 Benadryl) Opioid HPI Opioid Management Most Recent Opioid Data: No Data to Display PFSH PFSH Social History Little interest or pleasure in doing things: not at all Feeling down, depressed, or hopeless: not at all Exam Constitutional Vital Signs, click to edit/add: Last Vital Signs Temp 99.1 F 07/08/24 07:57 Pulse 118 H 07/08/24 07:57 Resp 18 07/08/24 07:57 BP 136/89 07/08/24 07:57 Pulse Ox 98 07/08/24 07:57 O2 Del Method Room Air 07/08/24 07:57 Course Vital Signs Vital signs: Vital Signs Temperature 99.1 F 07/08/24 07:57 Pulse Rate 118 H 07/08/24 07:57 Respiratory Rate 18 07/08/24 07:57 Blood Pressure 136/89 07/08/24 07:57 Pulse Oximetry 98 07/08/24 07:57 Oxygen Delivery Method Room Air 07/08/24 07:57 Temperature 99.1 F 07/08/24 07:57 Pulse Rate 118 H 07/08/24 07:57 Respiratory Rate 18 07/08/24 07:57 Blood Pressure 136/89 07/08/24 07:57 Pulse Oximetry 98 07/08/24 07:57 Oxygen Delivery Method Room Air 07/08/24 07:57 Medical Decision Making MDM Narrative Medical decision making narrative: Patient vital signs were rechecked, blood pressure was normal, heart rate was 106. Patient was noted to be slightly anxious during triage process. We have discussed [id number] medication to help treat all of patient's symptoms. This was discussed at bedside and also was discussed on discharge paperwork as well. Patient was sent home with a prescription for Tamiflu and Zofran. Patient understands the importance of increasing fluids with Gatorade, Powerade, water. Discharge Plan Discharge Stand Alone Forms: Work/School Release Chief Complaint: Upper Respiratory Infection Clinical Impression: Influenza, Cough, Flu-like symptoms Patient Disposition: Home, Self-Care Time of Disposition Decision: 08:26 Condition: Fair Prescriptions / Home Meds: New oseltamivir [Tamiflu] 75 mg capsule 75 mg PO BID 5 Days Qty: 10 0RF ondansetron 4 mg tablet,disintegrating 4 mg PO Q4H PRN (Reason: nausea and vomiting) 3 Days Qty: 6 0RF Print Language: Estonian Instructions: Influenza (ED) Additional Instructions: Increase fluids at home, Gatorade, Powerade, or water. Alternate using DayQuil, NyQuil, and Flonase. Add Mucinex as well as needed. Alternate Tylenol and Motrin every 4 hours to help with fever control, body aches or joint pain. Use xjyd-jlw-sagoaer vitamin C, vitamin D3, and zinc to help fight infection and help with her immune system. Referrals: Stephie Carreon NP [Primary Care Provider] - 1 week
== END 2024-07-08 08:32 | disposition home or self-care (01) ==
PROVIDERS: Emergency Provider Emergency Medicine; PCP Nurse Practitioner Family
DX: J11.1 Influenza due to unidentified influenza virus with other respiratory manifestations (principal); R05.9 Cough, unspecified; M79.10 Myalgia, unspecified site
CPT/HCPCS: 99283

== ENCOUNTER 2024-11-30 14:54 | Emergency (ER) | payer SELFPAY ==
[2024-11-30 15:02] VITALS: BP 194/100; PULSE 107; TEMP 36.7; O2SAT 97; BMI 27.4
--- NOTE | 2024-11-30 15:33 | ED_ITS ---
HPI HPI - General Adult General Chief complaint: Skin/Abscess/Foreign Body Stated complaint: RASH - NECK Time Seen by Provider: 11/30/24 15:24 Source: patient Mode of arrival: walk-in Limitations: no limitations History of Present Illness HPI narrative: 44-year-old female presents to the emergency department for rash. She reports that its on the left side of her neck and it has been there for about a week and a half. She went to an urgent care and was put on some pills, she states an antibiotic. She has rash and itching in both axilla. All of these rashes started right after using a new to her deodorant. She states she does not have a rash elsewhere on her body. Related Data Previous Rx's ?Medication ?Instructions ?Recorded prednisone 10 mg tablet See Rx Instructions .Route 0 11/30/24 .COMPLEX #30 tabs Allergies Allergy/AdvReac Type Severity Reaction Status Date / Time No Known Drug Allergies Allergy Verified 11/30/24 15:08 Opioid HPI Opioid Management Most Recent Opioid Data: Last Pain Scale 10 Today, 15:02 Review of Systems ROS Narrative A ten point review of systems is negative except as noted above. PFSH PFSH Social History Little interest or pleasure in doing things: not at all Feeling down, depressed, or hopeless: not at all Exam Narrative Exam Narrative: Nurses note and vital signs reviewed and patient is not hypoxic. General: The patient appears well and in no apparent distress. Patient is resting comfortably on cart. Skin: Warm, dry, no pallor noted. Is a somewhat Square patch of erythema very minimally raised on the left side of her neck. She has significantly larger areas of erythema in both axilla. There is no open area or drainage. Head: Normocephalic, atraumatic Eye: Normal conjunctiva, no drainage Ears, Nose, Mouth, and Throat: oral mucosa is moist. Nares patent. Cardiovascular: Regular Rate and Rhythm Respiratory: Patient is in no distress, no accessory muscle use, lungs are clear to auscultation, no wheezing, rales or rhonchi Back: non-tender GI: Soft and nontender Musculoskeletal: The patient has no evidence of calf tenderness, no pitting edema, symmetrical pulses noted bilaterally Neurological: A&O, normal speech Psychiatric: Cooperative Constitutional Vital Signs, click to edit/add: Last Vital Signs Temp 98.1 F 11/30/24 15:02 Pulse 107 H 11/30/24 15:02 Resp 18 11/30/24 15:02 BP 194/100 H 11/30/24 15:02 Pulse Ox 97 11/30/24 15:02 O2 Del Method Room Air 11/30/24 15:02 Course Vital Signs Vital signs: Vital Signs Temperature 98.1 F 11/30/24 15:02 Pulse Rate 107 H 11/30/24 15:02 Respiratory Rate 18 11/30/24 15:02 Blood Pressure 194/100 H 11/30/24 15:02 Pulse Oximetry 97 11/30/24 15:02 Oxygen Delivery Method Room Air 11/30/24 15:02 Temperature 98.1 F 11/30/24 15:02 Pulse Rate 107 H 11/30/24 15:02 Respiratory Rate 18 11/30/24 15:02 Blood Pressure 194/100 H 11/30/24 15:02 Pulse Oximetry 97 11/30/24 15:02 Oxygen Delivery Method Room Air 11/30/24 15:02 Medical Decision Making [facility] Narrative Medical decision making narrative: The patient has contact dermatitis. She was given IM Solu-Medrol and prescribed prednisone and was advised to stop using her deodorant. She was advised to switch brands. Treatment diagnosis and follow-up were discussed with the patient. Differential Diagnosis Differential Diagnosis: Contact dermatitis, cellulitis Discharge Plan Discharge Chief Complaint: Skin/Abscess/Foreign Body Clinical Impression: Contact dermatitis Patient Disposition: Home, Self-Care Time of Disposition Decision: 15:32 Condition: Good Mode of Transportation: Private Vehicle Prescriptions / Home Meds: New prednisone 10 mg tablet See Rx Instructions .ROUTE .COMPLEX Qty: 30 0RF Rx Instructions: 4 by mouth daily for three days then 3 by mouth daily for three days then 2 by mouth daily for three days then 1 by mouth daily for three days Print Language: Senegalese Instructions: Contact Dermatitis (ED) Referrals: Stephie Carreon NP [Primary Care Provider] - 1 week
[2024-11-30] MEDS: METHYLPREDNISOLONE SOD SUCC PF 125 MG/2 ML VIAL IM (15:49)
[2024-11-30 15:53] VITALS: BP 168/90; PULSE 94; O2SAT 98
--- OUTSIDE RECORDS SUMMARY | 2024-11-30 21:38 | XMS_ITS | CCD ---
Author Organization [facility] Care Team Providers Care Percussion Tuner Name Role Phone BRIT HURD Unavailable Unavailable BLOOD, MORRIS Polanco Unavailable Unavailable BLOOD, MORRIS Polanco Unavailable Unavailable ROSEMARY TAVERA Unavailable Unavaillv e Unavailable Primary Care Provider UnavailChuck Barbosa Unavailable NON STAFF Primary Care Provider UnavailMD Chuck Barbosa Attending Provider NON STAFF Primary Care Provider UnavailMD Chuck Barbosa Attending Provider [phone] LY BOYLE Referring Unavailable SCHLACHTER, JAZMYNE Primary Care Unavailable LY BOYLE Attending Unavailable SCHLACHTER, JAZMYNE Referring Unavailable SCHLACHTER, JAZMYNE Primary Care Unavailable SCHNOLBERTOCHTERJIMBORA Attending Unavailable SCHNOLBERTOCHTER, JAZMYNE Referring Unavailable SCHLACHTER, JAZMYNE Primary Care Unavailable SCHLACHTERJIMBORA Attending Unavailable SCHLACHTER, JAZMYNE Referring Unavailable SCHLACHTER, JAZMYNE Primary Care Unavailable LY BOYLE Attending Unavailable SCHLACHTER, JAZMYNE Referring Unavailable SCHLACHTER, JAZMYNE Primary Care Unavailable Schlachter GROCERY SHOPPER-CUSTOMER OPERATIONS INTERN, Jazmyne Primary Care Provide r Schlachter ALEXANDRO, Jazmyne Primary Care Provide r NON STAFF Primary Care Provider Rocky Mon MD Attending Provider [phone] Rocky Sandoval Attending Unavailab Rocky Vásquez Admitting Unavailab blossom CAT STAFF Primary Care Unavailable Medications Current Medications Medication Drug Class(es) Dates Sig (Normalized) Sig (Original) cariprazine 1.5 mg oral capsule (1 source) Atypical Antipsychotic Start: 09-29-2024 take 1 capsule by mouth once daily Cariprazine (Vraylar) 1.5 mg capsule Active 1.5 MG PO Daily September 29, 2024 12:00am escitalopram 10 mg oral tablet (8 sources) Serotonin Reuptake Inhibitor Start: 02-18-2021 take 1 tablet by mouth once daily Escitalopram Oxalate 10 mg tablet Active 10 MG PO Daily March 31, 2023 1:00am levothyroxine sodium 0.05 mg oral tablet (11 sources) l-Thyroxine Start: 01-27-2023 End: 08-25-2024 take 1 tablet by mouth once daily Levothyroxine 50 mcg tablet Active 50 MCG PO Daily March 31, 2023 1:00am Levothyroxine So dium 50 MCG Oral for 90 Days Active Completed/Discontinued Medications Medication Drug Class(es) Dates Sig (Normalized) Sig (Original) ARIPiprazole 5 mg oral tablet (2 sources) Atypical Antipsychotic Start: 03-31-2023 End: 09-29-2024 take 1 tablet by mouth once daily Aripiprazole 5 mg tablet Discontinued 5 MG PO Daily March 31, 2023 1:00am September 29, 2024 6:57pm Problems Active Problems Problem Classification Problem Date Documented Da te Episodic/Chronic Anxiety disorders (3 sources) Anxiety disorder, unspecified; Translations: [Mixed anxiety and depressive disorder] Onset: 4 06-18-2023 Chronic Developmental disorders (4 sources) Intellectual disability; Translations: [Unspecified intellectual disabilities] Onset: 6 10-17-2015 Chronic Disorders of lipid metabolism (3 sources) Mixed hyperlipidemia; Translations: [Mixed hyperlipidemia] Onset: 4 06-18-2023 Chronic Esophageal disorders (8 sources) Gastroesophageal reflux disease without esophagitis; Translations: [Gastro-esophageal reflux disease without esophagitis] Onset: 7 Resolved: 8 11-10-2017 Chronic Hemorrhoids (1 source) Unspecified hemorrhoids Episodic Mood disorders (5 sources) Depressive disorder; Translations: [Depression] Onset: 6 Resolved: 7 08-29-2016 Chronic Other endocrine disorders (1 source) Other hypoglycemia; Translations: [Other hypoglycemia] Onset: 8 Chronic Other endocrine disorders (5 sources) Hyperinsulinism; Translations: [Other hypoglycemia] Onset: 8 10-30-2017 Chronic Other female genital disorders (2 sources) Other specified abnormal uterine and vaginal bleeding; Translations: [Other specified abnormal uterine and vaginal bleeding] Onset: 3 Chronic Other gastrointestinal disorders (2 sources) Diarrhea; Translations: [Diarrhea, unspecified] Episodic Other gastrointestinal disorders (1 source) Diarrhea, unspecified Episodic Other nutritional; endocrine; and metabolic disorders (1 source) Morbid (severe) obesity due to excess calories; Translations: [Morbid (severe) obesity due to excess calories] Onset: 0 Chronic Other screening for suspected conditions (not mental disorders or infectious disease) (2 sources) Encounter for screening mammogram for malignant neoplasm of breast; Translations: [Patient encounter status] Onset: 4 01-12-2024 Episodic Substance-related disorders (1 source) Poisoning by heroin, accidental (unintentional), initial encounter; Translations: [Poisoning by heroin, accidental (unintentional), initial encounter] Onset: 8 Thyroid disorders (8 sources) Hypothyroidism, unspecified; Translations: [Acquired hypothyroidism] Onset: 7 Resolved: 8 06-18-2023 Chronic Unclassified (1 source) Annual Exam Onset: 4 Unclassified (1 source) Menstrual Problem Onset: 3 Past or Other Problems Problem Classification Problem Date Documented Da te Episodic/Chronic Abdominal pain (4 sources) Generalized abdominal pain; Translations: [Generalized abdominal pain] Onset: 08-29-2016 08-29-2016 Episodic Adjustment disorders (4 sources) Grief finding; Translations: [Adjustment disorder with depressed mood] Onset: 10-17-2015 Resolved: 08-29-2016 08-29-2016 Chronic Allergic reactions (4 sources) Inflammatory dermatosis; Translations: [Dermatitis, unspecified] Onset: 11-10-2017 11-10-2017 Episodic Blindness and vision defects (4 sources) Eye / vision finding; Translations: [Unspecified visual disturbance] Onset: 08-29-2016 08-29-2016 Episodic Calculus of urinary tract (8 sources) Kidney stone; Translations: [Calculus of kidney] Onset: 10-17-2015 Resolved: 08-29-2016 10-30-2017 Episodic Fluid and electrolyte disorders (4 sources) Hypokalemia; Translations: [Hypokalemia] Onset: 11-27-2017 11-27-2017 Episodic Genitourinary symptoms and ill-defined conditions (4 sources) Dysuria; Translations: [Dysuria] Onset: 10-17-2015 Resolved: 08-29-2016 08-29-2016 Episodic Menstrual disorders (5 sources) Amenorrhea; Translations: [Amenorrhea, unspecified] Onset: 10-17-2015 Resolved: 11-10-2017 11-10-2017 Chronic Mood disorders (5 sources) Mood disorders; Translations: [Depression, unspecified] Onset: 12-17-2022 Resolved: 01-12-2024 12-17-2022 Mycoses (8 sources) Candidiasis of vagina; Translations: [Vaginal candidiasis] Onset: 10-17-2015 Resolved: 08-29-2016 08-29-2016 Episodic Nausea and vomiting (4 sources) Nausea and vomiting; Translations: [Nausea with vomiting, unspecified] Onset: 10-06-2016 Resolved: 11-10-2017 11-10-2017 Episodic Other ear and sense organ disorders (4 sources) Hearing loss of right ear; Translations: [Unspecified hearing loss, right ear] Onset: 10-17-2015 Resolved: 11-10-2017 11-10-2017 Chronic Other gastrointestinal disorders (4 sources) Slow transit constipation; Translations: [Slow transit constipation] Onset: 08-29-2016 Resolved: 11-10-2017 11-10-2017 Episodic Other gastrointestinal disorders (4 sources) Swollen abdomen; Translations: [Abdominal distension (gaseous)] Onset: 08-29-2016 Resolved: 11-10-2017 11-10-2017 Episodic Other injuries and conditions due to external causes (4 sources) H/O: head injury; Translations: [Personal history of other (healed) physical injury and trauma] Onset: 08-29-2016 08-29-2016 Episodic Other nervous system disorders (4 sources) Disorder of fluency; Translations: [Fluency disorder in conditions classified elsewhere] Onset: 10-17-2015 Resolved: 08-29-2016 08-29-2016 Episodic Other nutritional; endocrine; and metabolic disorders (5 sources) Severe obesity; Translations: [Morbid (severe) obesity due to excess calories] Onset: 01-05-2020 Resolved: 01-12-2024 06-18-2023 Chronic Other skin disorders (4 sources) Hirsutism; Translations: [Hirsutism] Onset: 10-17-2015 10-17-2015 Episodic Otitis media and related conditions (8 sources) Dysfunction of eustachian tube; Translations: [Unspecified Eustachian tube disorder, unspecified ear] Onset: 10-17-2015 Resolved: 08-29-2016 09-03-2016 Episodic Poisoning by other medications and drugs (4 sources) Poisoning by unspecified drugs, medicaments and biological substances, accidental (unintentional), initial encounter; Translations: [Poisoning by unspecified drug or medicinal substance] Onset: 11-26-2017 11-27-2017 Episodic Skull and face fractures (8 sources) Fracture of skull and facial bones; Translations: [Unspecified fracture of skull, initial encounter for closed fracture] Onset: 10-17-2015 Resolved: 08-29-2016 08-29-2016 Episodic Spondylosis; intervertebral disc disorders; other back problems (4 sources) Chronic thoracic back pain; Translations: [Pain in thoracic spine] Onset: 08-29-2016 08-29-2016 Episodic Substance-related disorders (14 sources) Other psychoactive substance abuse, uncomplicated; Translations: [Opioid dependence, uncomplicated] Onset: 11-27-2017 Resolved: 12-16-2021 06-18-2023 Chronic Substance-related disorders (4 sources) Accidental heroin overdose; Translations: [Poisoning by heroin, accidental (unintentional), initial encounter] Onset: 11-26-2017 Resolved: 12-16-2021 12-16-2021 Episodic Unclassified (4 sources) Onset: 06-18-2023 Resolved: 01-12-2024 06-18-2023 Results Test Name Value Interpretation Reference Range Facility COMPLETE BLOOD COUNTon 05-26 Erythrocyte distribution width (RBC) [Ratio] 14.1 % Normal 11.5-15.0 [facility] Comment on above: Performed By: #### 2 842-3, 33473-7, 01268-0, CBC #### [facility] ([id number]) [address], [address] [place] [address] Hematocrit (Bld) [Volume fraction] 39.7 % Normal 35-47 [facility] Comment on above: Performed By: #### 2 842-3, 57708-2, 85227-2, CBC #### [facility] ([id number]) [address], [address] [place] [address] Hemoglobin (Bld) [Mass/Vol] 13.5 g/dL Normal 11.7-15.5 [facility] Comment on above: Performed By: #### 2 842-3, 55985-4, 98924-8, CBC #### [facility] ([id number]) [address], [address] [place] [address] MCH (RBC) [Entitic mass] 30.3 pg Normal 27-34 [facility] Comment on above: Performed By: #### 2 842-3, 48099-1, 51072-3, CBC #### [facility] ([id number]) [address], [address] [place] [address] MCHC (RBC) [Mass/Vol] 33.9 g/dL Normal 32-36 [facility] Comment on above: Performed By: #### 2 842-3, 34172-9, 14386-6, CBC #### [facility] ([id number]) [address], [address] [place] [address] MCV (RBC) [Entitic vol] 89 fL Normal 80-100 [facility] Comment on above: Performed By: #### 2 842-3, 31677-4, 84054-1, CBC #### [facility] ([id number]) [address], [address] [place] [address] Platelet mean volume (Bld) [Entitic vol] 6.7 fL Low 7-12 [facility] Comment on above: Performed By: #### 2 842-3, 82461-6, 06377-8, CBC #### [facility] ([id number]) [address], [address] [place] [address] Platelets (Bld) [#/Vol] 338 10*3/uL Normal 150-450 [facility] Comment on above: Performed By: #### 2 842-3, 78381-6, 97396-6, CBC #### [facility] ([id number]) [address], [address] [place] [address] RBC COUNT 4.44 X10E12/L Normal 3.80-5.20 [facility] Comment on above: Performed By: #### 2 842-3, 70712-7, 90748-9, CBC #### [facility] ([id number]) [address], [address] [place] [address] WBC (Bld) [#/Vol] 7.2 10*3/uL Normal 4.0-11.0 [facility] Comment on above: Performed By: #### 2 842-3, 63483-8, 31098-6, CBC #### [facility] ([id number]) [address], [address] [place] [address] Follitropin Qnon 05-26-2023 FOLLICLE STIM HORMONE 5.1 mIU/mL Normal [facility] Comment on above: Result Comment: NORMAL FEMALE Luteal 1.8-5.1 mIU/mL Follicular 3.8-8.8 mIU/mL Mid Cycle 4.5-22.5 mIU/mL Post Sara 16.7-113.6 mIU/mL Performed By: #### 2 842-3, 07945-2, 50729-0, CBC #### [facility] ([id number]) [address], [address] [place] [address] Lutropin Qnon 05-26-2023 LUTEINIZING HORMONE 5.3 mIU/mL Normal [facility] Comment on above: Result Comment: NORMAL FEMALE Follicular 2.1-10.9 mIU/mL Mid Cycle 19.2-103 mIU/mL Luteal 1.2-12.9 mIU/mL Post [place] 10.9-58.6 mIU/mL Performed By: #### 2 842-3, 21862-0, 86935-8, CBC #### [facility] ([id number]) [address] [place] [address] Prolactin [Mass/Vol]on 05-26 PROLACTIN 7.8 ng/mL Normal 3.3-26.7 [facility] Comment on above: Performed By: #### 2 842-3, 36157-3, 38426-5, CBC #### [facility] ([id number]) [address], [address] [place] [address] HCG ( test) IAclare d Ql (U)Ordered By: fredy Souza on 03-31-2023 HCG ( test) Ql (U) Negative [facility] No Panel InformationOrdered By: Imad Dionicioad on 03-31-2023 Ova and Parasite Result 1 N/A [facility] Ova or parasites identificat ionOrdered By: Imad Asaad on 03-31-2023 Ova and parasites identified LM Nom (Unsp spec) N/A [facility] Stool ova and parasites iden tification by concentrationOrdered By: Imad Asaad on 03-31-2023 Ova and parasites identified Concentration Nom (Stl) N/A [facility] Stool ova and parasites iden tification by trichrome stainOrdered By: Imad Asaad on 03-31-2023 Ova and parasites identified Trichrome stain Nom (Stl) N/A [facility] C reactive protein [Mass/vol ume] in Serum or PlasmaOrdered By: Imad Asafredy on 03-26-2023 CRP [Mass/Vol] 1.5 mg/dL 0.0-0.5 [facility] Erythrocyte sedimentation ra te by Photometric methodOrdered By: Imad Asaad on 03-26-2023 ESR Photometric method (Bld) [Velocity] 17 mm/hr 0-14 [facility] HIV 1 and HIV-2 antibody ass ay with HIV-1 p24 antigen detectionOrdered By: Imad Asaad on 03-26-2023 HIV 1+2 Ab+HIV1 p24 Ag IA Ql Non-Reactive Non Reactive [facility] Comment on above: HIV NegativeHIV-1/HI V-2 antibodies and HIV-1 p24 antigen were NOTdetected. There is no laboratory evidence of HIV infection.Performed at: [facility] [place], [place] [id number] Director: Terell Hoyos PhD, Phone: [phone] IgA [Mass/volume] in Serum o r PlasmaOrdered By: Imad Asaad on 03-26-2023 IgA [Mass/Vol] 255 mg/dL . [facility] Comment on above: No patient age [...] 61 - [phone] 64 [phone] at: [facility] [id number] [place], [place] [id number] Director: Terell Hoyos PhD, Phone: [phone] No Panel InformationOrdered By: Imad Asafredy on 03-26-2023 Endomysial IgA Antibody Negative Negative F [facility] Serum gliadin peptide IgA an tibody assay (units/volume)Ordered By: Imad Asafredy on 03-26-2023 Gliadin peptide IgA Qn (S) 26 units 0-19 [facility] Comment on above: Negative 0 - 19 Weak Positive 20 - 30 Moderate to Strong Positive >30 Serum gliadin peptide IgG an tibody assay (units/volume)Ordered By: Chuck Souza on 03-26-2023 Gliadin peptide IgG Qn (S) 2 units 0-19 [facility] Comment on above: Negative 0 - 19 Weak Positive 20 - 30 Moderate to Strong Positive >30 Serum tissue transglutaminas e (tTG) IgA antibody assay (units/volume)Ordered By: Chuck Souza on 03-26-2023 tTG IgA Qn (S) 2 U/mL 0-3 [facility] Comment on above: Negative 0 - 3 Weak Positive 4 - 10 Positive >10 Tissue Transglutaminase (tTG) has been identified as the endomysial antigen. Studies have demonstr- ated that endomysial IgA antibodies have over 99% specificity for gluten sensitive enteropathy. Serum tissue transglutaminas e (tTG) IgG antibody assay (units/volume)Ordered By: Chuck Souza on 03-26-2023 tTG IgG Qn (S) 3 U/mL 0-5 [facility] Comment on above: Negative 0 - 5 Weak Positive 6 - 9 Positive >9 Thyrotropin [Units/volume] i n Serum or PlasmaOrdered By: fredy Greenberg on 03-26-2023 TSH Qn 4.27 m[IU]/L 0.45-5.33 [facility] Acetaminophenon 11-27-2017 Acetaminophen mass conc <10 Low 10-30 M [facility] Comment on above: Performed By: #### A CET ####[address] [address] CBCon 11-27-2017 Erythrocyte distribution width Auto Ratio (RBC) 13.3 % Normal 11.5-14.5 [facility] Comment on above: Performed By: #### C BC, MG, CMPX ####[address] [address] Erythrocytes (RBC) 3.76 10*6/uL Low 4.0-5.2 [facility] Comment on above: Performed By: #### C BC, MG, CMPX ####[address] [address] Hematocrit (HCT) 34.9 % Low 36-[address] [facility] Comment on above: Performed By: #### C BC, MG, CMPX ####[address] [address] Hemoglobin mass conc (Bld) 11.5 g/dL Low 12.0-16.0 [facility] Comment on above: Performed By: #### C BC, MG, CMPX ####[address] [address] MCH 30.7 pg Normal 26-34 [facility] Comment on above: Performed By: #### C BC, MG, CMPX ####[address] [address] MCHC mass conc (RBC) 33.0 g/dL Normal 31-37 [facility] Comment on above: Performed By: #### C BC, MG, CMPX ####[address] [address] MCV 93.0 fL Normal 80-100 [facility] Comment on above: Performed By: #### C BC, MG, CMPX ####[address] [address] Platelet mean volume (PMV) 6.9 fL Normal 6.0-12.0 [facility] Comment on above: Performed By: #### C BC, MG, CMPX ####[address] [address] Platelets 226 10*3/uL Normal 130-400 [facility] Comment on above: Performed By: #### C BC, MG, CMPX ####[facility] [place] [address] WBC (Leukocytes) 6.7 10*3/uL Normal 3.5-11.0 [facility] Comment on above: Performed By: #### C BC, MG, CMPX ####[facility] [place] [address] Erythrocytes (RBC) NOT REPORTED Normal [facility] Comment on above: Performed By: #### C BC, MG, CMPX ####[address] [place] [address] Comp Metabolic Pr/rfx MGon 0 11-27-2017 (cont.) Normal [facility] Comment on above: Result Comment: Aver age GFR for 30-39 years old: 107 mL/min/1.73sq mChronic Kidney Disease: <60 mL/min/1.73sq mKidney failure: <15 mL/min/1.73sq meGFR calculated using average adult body mass. Additional eGFR calculator available at:http://www.[employer]/multiple_crcl_2012.htm Performed By: #### C BC, MG, CMPX ####[facility] [place] [address] Alanine aminotransferase (ALT) 29 U/L Normal 5-33 [facility] Comment on above: Performed By: #### C BC, MG, CMPX ####[facility] [place] [address] Albumin 3.5 g/dL Normal 3.5-5.2 [facility] Comment on above: Performed By: #### C BC, MG, CMPX ####[facility] [place] [address] Alkaline Phos 81 U/L Normal 35-104 [facility] Comment on above: Performed By: #### C BC, MG, CMPX ####[address] [address] Anion gap 9 mmol/L Normal 9-17 [facility] Comment on above: Performed By: #### C BC, MG, CMPX ####[address] [address] Aspartate aminotransferase (AST) 37 U/L High <32 [facility] Comment on above: Performed By: #### C BC, MG, CMPX ####[address] [address] Bilirubin Ql (U) 0.40 mg/dL Normal 0.3-1.[address] [facility] Comment on above: Performed By: #### C BC, MG, CMPX ####[address] [address] BUN/CRE Ratio 14 Normal 9-20 [facility] Comment on above: Performed By: #### C BC, MG, CMPX ####[address] [address] Calcium 8.2 mg/dL Low 8.6-10.4 [facility] Comment on above: Performed By: #### C BC, MG, CMPX ####[address] [address] Chloride 100 mmol/L Normal 98-107 [facility] Comment on above: Performed By: #### C BC, MG, CMPX ####[address] [address] CO2 28 mmol/L Normal 20-31 [facility] Comment on above: Performed By: #### C BC, MG, CMPX ####[facility] [place] [address].[place] [address] Creatinine 0.63 mg/dL Normal 0.50-0.90 [facility] Comment on above: Performed By: #### C BC, MG, CMPX ####[address] [place] [address] eGFR (non-black) mL/min/{1.73_m2} Normal >60 [facility] Comment on above: Performed By: #### C BC, MG, CMPX ####[address] [place] [address] Glucose mass conc 107 mg/dL High 70-99 [facility] Comment on above: Performed By: #### C BC, MG, CMPX ####[address] [address] Potassium molar conc 3.5 mmol/L Low 3.7-5.3 [facility] Comment on above: Performed By: #### C BC, MG, CMPX ####[address] [place] [address] Protein 5.4 g/dL Low 6.4-8.3 [facility] Comment on above: Performed By: #### C BC, MG, CMPX ####[address] [address] Sodium 137 mmol/L Normal 135-144 [facility] Comment on above: Performed By: #### C BC, MG, CMPX ####[address] [place] [address] Urea nitrogen 9 mg/dL Normal 6-20 [facility] Comment on above: Performed By: #### C BC, MG, CMPX ####[facility] [facility] [place] [address] Albumin/Globulin Ratio NOT REPORTED Normal 1.0-2.5 [facility] Comment on above: Performed By: #### C BC, MG, CMPX ####[facility] [facility] [place] [address] Staging: NOT REPORTED Normal [facility] Comment on above: Performed By: #### C BC, MG, CMPX ####[facility] [place], [place] [id number] Magnesiumon 11-27-2017 Magnesium 1.9 mg/dL Normal 1.6-2.6 [facility] Comment on above: Performed By: #### C BC, MG, CMPX ####[address] [address] Basic Metabolic Profon 11-26 (cont.) Normal [facility] Comment on above: Result Comment: Aver age GFR for 30-39 years old: 107 mL/min/1.73sq mChronic Kidney Disease: <60 mL/min/1.73sq mKidney failure: <15 mL/min/1.73sq meGFR calculated using average adult body mass. Additional eGFR calculator available at:http://www.[employer].com/multiple_crcl_2012.htm Anion gap 10 mmol/L Normal 9-17 [facility] Calcium 8.7 mg/dL Normal 8.6-10.4 [facility] Chloride 104 mmol/L Normal 98-107 [facility] CO2 29 mmol/L Normal 20-31 [facility] Creatinine 0.70 mg/dL Normal 0.50-0.90 [facility] eGFR (non-black) mL/min/{1.73_m2} Normal >60 [facility] Glucose mass conc 96 mg/dL Normal 70-99 [facility] Potassium molar conc 3.6 mmol/L Low 3.7-5.3 [facility] Sodium 143 mmol/L Normal 135-144 [facility] Urea nitrogen 11 mg/dL Normal 6-20 [facility] BUN/CRE Ratio NOT REPORTED Normal 9-20 [facility] Staging: NOT REPORTED Normal [facility] CBC with Diffon 11-26-2017 Abs. Basophil 0.00 k/uL Normal 0.0-0.2 [facility] Abs.Neutrophil (Seg) 2.60 k/uL Normal 1.8-7.7 [facility] Basophils/100 WBC Auto (Bld) 1 % Normal 0-2 [facility] Eosinophils 0.10 10*3/uL Normal 0.0-0.4 [facility] Eosinophils/100 leukocytes 3 % Normal 1-4 [facility] Erythrocyte distribution width Auto Ratio (RBC) 13.3 % Normal 12.5-15.4 [facility] Erythrocytes (RBC) 4.10 10*6/uL Normal 4.0-5.2 [facility] Hematocrit (HCT) 37.9 % Normal 36-[address] [facility] Hemoglobin mass conc (Bld) 12.6 g/dL Normal 12.0-16.0 [facility] Lymphocytes 2.00 10*3/uL Normal 1.0-4.8 [facility] [facility] Lymphocytes/100 leukocytes 39 % Normal 24-44 [facility] MCH 30.7 pg Normal 26-34 [facility] MCHC mass conc (RBC) 33.3 g/dL Normal 31-37 [facility] MCV 92.2 fL Normal 80-100 [facility] Monocytes 0.40 10*3/uL Normal 0.1-1.2 [facility] Monocytes/100 leukocytes 8 % Normal 2-11 [facility] Neutrophil (Seg) 49 % Normal 36-[address] [facility] Platelet mean volume (PMV) 7.4 fL Normal 6.0-12.0 [facility] Platelets 262 10*3/uL Normal 140-450 [facility] WBC (Leukocytes) 5.2 10*3/uL Normal 3.5-11.0 [facility] Auto Diff Performed NOT REPORTED Normal [facility] Erythrocyte morphology NOT REPORTED Normal [facility] Erythrocytes (RBC) NOT REPORTED Normal [facility] Granulocytes/100 WBC (Bld) NOT REPORTED Normal 0.00-0.30 [facility] Immature granulocytes #/vol (Bld) NOT REPORTED Normal 0 [facility] Platelets NOT REPORTED Normal [facility] WBC Morphology NOT REPORTED Normal [facility] Drug Scr, Abuse, Uron 2017 Amphetamine(s),Ur Negative Normal NEG [facility] Comment on above: Result Comment: (Pos itive cutoff 1000 ng/mL) Barbiturate(s),Ur Negative Normal NEG [facility] Comment on above: Result Comment: (Pos itive cutoff 200 ng/mL) Base excess Positive Abnormal NEG [facility] Comment on above: Result Comment: (Pos itive cutoff 300 ng/mL) Benzodiazepine(s) Negative Normal NEG [facility] Comment on above: Result Comment: (Pos itive cutoff 200 ng/mL) Cannabinoid(s),Ur Negative Normal NEG [facility] Comment on above: Result Comment: (Pos itive cutoff 50 ng/mL) Interpretive Info Assay provides medic al screening only. The absence of expected drug(s) and/or Normal [facility] Comment on above: Result Comment: meta bolite(s) may indicate diluted or adulterated urine, limitations of testing or timing of collection.Testing for legal purposes should be confirmed by another method. To request confirmation of test result, please call the lab within 7 days of sample submission. Opiate(s), Ur Positive Abnormal NEG [facility] Comment on above: Result Comment: (Pos itive cutoff 300 ng/mL) Oxycodone, Urine Negative Normal NEG [facility] Comment on above: Result Comment: (Pos itive cutoff 100 ng/mL) Phencyclidine, Ur Negative Normal NEG [facility] Comment on above: Result Comment: (Pos itive cutoff 25 ng/mL) Urine, methadone presence Negative Normal NEG [facility] Comment on above: Result Comment: (Pos itive cutoff 300 ng/mL) Buprenorphrine, Ur NOT REPORTED Normal NEG [facility] MDMA, Urine NOT REPORTED Normal NEG [facility] Methamphetamine, Ur NOT REPORTED Normal NEG [facility] Propoxyphene,Urine NOT REPORTED Normal NEG [facility] Urine, tricyclic antidepressants NOT REPORTED Normal NEG [facility] Ethanol Alcoholon 11-26-2017 Ethanol mg/dL Normal <10 [facility] Ethanol percent <0.010 Normal [facility] HCG, ,Urineon 11-26 HCG.beta subunit ( test) Ql (U) Negative Normal NEG [facility] Comment on above: Result Comment: Spec [...] by:HOSEA Houigned by:Junior Cortez MD11/26/17inal result Normal [facility] Vital Signs Date Time Vital Sign Value Performing Clinician Facility 09-29-2024 19:03-0400 Diastolic blood pressure 119 mm[Hg] [facility] 09-29-2024 19:03-0400 Systolic blood pressure 166 mm[Hg] [facility] 09-29-2024 18:53-0400 Body height 165.1 cm [facility] 09-29-2024 18:53-0400 Body mass index (BMI) [Ratio] 41.2 kg/m2 [facility] 09-29-2024 18:53-0400 Body temperature 98.9 [degF] [facility] 09-29-2024 18:53-0400 Body weight 112.49 kg [facility] 09-29-2024 18:53-0400 Heart rate 100 /min [facility] 09-29-2024 18:53-0400 Respiratory rate 16 /min [facility] 09-29-2024 18:53-0400 SaO2% (BldA) [Mass fraction] 97 % [facility] 01-12-2024 14:01-0400 Body mass index (BMI) [Ratio] 31.9 kg/m2 Jazmyne Brocker [employer] Work Phone: [facility] 01-12-2024 14:01-0400 Body weight 97.98 kg Jazmyne Brocker [employer] Work Phone: [facility] 01-12-2024 14:01-0400 Diastolic blood pressure 70 mm[Hg] Jazmyne Daniachter [employer] Work Phone: [facility] 01-12-2024 14:01-0400 Heart rate 98 /min Jazmyne Schnolbertochter [employer] Work Phone: [facility] 01-12-2024 14:01-0400 Respiratory rate 18 /min Jazmyne Delmyer [employer] Work Phone: [facility] 01-12-2024 14:01-0400 SaO2% (BldA) [Mass fraction] 100 % Jazmyne Najerachter [employer] Work Phone: [facility] 01-12-2024 14:01-0400 Systolic blood pressure 120 mm[Hg] Jazmyne Daniachter [employer] Work Phone: [facility] 06-18-2023 14:12-0500 Body mass index (BMI) [Ratio] 36.48 kg/m2 Jazmyne Carreon [employer] Work Phone: [facility] 06-18-2023 14:12-0500 Body weight 112.04 kg Jazmyne Brocker [employer] Work Phone: [facility] 06-18-2023 14:12-0500 Diastolic blood pressure 74 mm[Hg] Jazmyne Brocker [employer] Work Phone: [facility] 06-18-2023 14:12-0500 Heart rate 88 /min Jazmyne Brocker [employer] Work Phone: [facility] 06-18-2023 14:12-0500 Respiratory rate 18 /min Jazmyne Daniachter [employer] Work Phone: [facility] 06-18-2023 14:12-0500 SaO2% (BldA) [Mass fraction] 98 % Jazmyne Carreon [employer] Work Phone: [facility] 06-18-2023 14:12-0500 Systolic blood pressure 128 mm[Hg] Jazmyne Carreon [employer] Work Phone: [facility] 03-31-2023 10:19-0500 Diastolic blood pressure 68 mm[Hg] [facility] 03-31-2023 10:19-0500 Heart rate 69 /min [facility] 03-31-2023 10:19-0500 Respiratory rate 16 /min [facility] 03-31-2023 10:19-0500 SaO2% (BldA) [Mass fraction] 96 % [facility] 03-31-2023 10:19-0500 Systolic blood pressure 110 mm[Hg] [facility] 03-31-2023 08:14-0500 Body height 175.26 cm [facility] 03-31-2023 08:14-0500 Body weight 111.13 kg [facility] 03-02-2023 13:00-0400 Body height 175.26 cm Imad Asaad Other [email or web address] Other 03-02-2023 13:00-0400 Body mass index (BMI) [Ratio] 36.47 kg/m2 Imad Asaad Other [email or web address] Other 03-02-2023 13:00-0400 Body weight 112.04 kg Imad Asaad Other [email or web address] Other 03-02-2023 13:00-0400 Diastolic blood pressure 70 mm[Hg] Imad Asaad Other [email or web address] Other 03-02-2023 13:00-0400 Systolic blood pressure 122 mm[Hg] Imad Asaad Other [email or web address] Other Encounters Encounter Date Encounter Type Care Provider Facility Start: 11-08-2024 ambulatory Rocky Sandoval Facility:[facility] Start: 09-29-2024 End: 09-29-2024 ambulatory NON STAFF [facility] Work Phone: Start: 09-29-2024 End: 09-29-2024 Patient encounter procedure [facility] Physician [facility] Work Phone: Start: 08-25-2024 End: 08-25-2024 Refill Neva Valdes MANAGER CRISIS [facility] Start: 08-23-2024 Registered [facility] Start: 01-12-2024 End: 01-12-2024 Patient encounter procedure Jazmyne Carreon [employer] Work Phone: [facility] Comment on above: Encounter for Medica re annual wellness exam (Primary Dx); Acquired hypothyroidism; Mixed hyperlipidemia; Drug abuse (CMS-HCC); Anxiety and depression; Heroin addiction (CMS-HCC); Hyperinsulinemia; Encounter for screening mammogram for malignant neoplasm of breast Start: 01-12-2024 End: 01-12-2024 ambulatory [facility] Start: 01-12-2024 Encounter for genera l adult medical examination without abnormal findings [facility] Start: 12-21-2023 End: 12-21-2023 Refill Neva Valdes [facility] Start: 06-18-2023 End: 06-18-2023 Office outpatient visit 15 minutes [facility] [employer] Work Phone: [facility] Comment on above: Acquired hypothyroid ism (Primary Dx); Mixed hyperlipidemia; Drug abuse ([facility]); Anxiety and depression; Heroin addiction ([facility]); Severe obesity (BMI 35.0-39.9) with comorbidity ([facility]) Start: 06-18-2023 End: 06-18-2023 ambulatory [facility] Start: 05-26-2023 End: 05-27-2023 ambulatory [facility] Start: 05-26-2023 ambulatory [facility] Start: 05-05-2023 ambulatory [facility] Start: 04-06-2023 End: 04-06-2023 ambulatory Imad Asaad Other [email or web address] Other Start: 04-06-2023 Telephone encounter [facility]ad Asa[facility] Start: 03-31-2023 End: 03-31-2023 Admission to same day surgery center [facility] Work Phone: Start: 03-31-2023 End: 03-31-2023 ambulatory NON STAFF [facility] Work Phone: Start: 03-26-2023 End: 03-26-2023 ambulatory NON STAFF [facility] Work Phone: Start: 03-26-2023 End: 03-26-2023 Patient encounter procedure [facility] Work Phone: Start: 03-02-2023 End: 03-02-2023 ambulatory Imad Asaad Other [email or web address] Other Start: 03-02-2023 Office outpatient ne w 45 minutes Imad Asaad [facility] Start: 06-09-2018 End: 06-09-2018 Letter encounter Raisa Schofield [facility] Start: 04-12-2018 Patient encounter ROSEMARY SMITH IN Facility:[facility] Start: 11-26-2017 End: 11-27-2017 Evaluation and management of inpatient BRIT HURD [facility] Start: 10-17-2015 Patient encounter status Jazmyne Carreon [employer] Work Phone: [employer] Work Phone: Procedures Date Procedure Procedure Detail Performing Clinician Start: 01-12-2024 Adult depression scr eening assessment Jazmyne Carreon [employer] Work Phone: Start: 06-18-2023 Follow-up visit Follow-up JAZMYNE CARREON Start: 03-31-2023 Microbial ova-parasi te examination, fecal Start: 03-31-2023 Ova and Parasite Result 1 Start: 03-31-2023 Ova OR parasites identification Start: 03-31-2023 Colonoscopy Start: 12-17-2022 Adult depression scr eening assessment Jazmyne Carreon [employer] Work Phone: Start: 07-29-2018 Microscopic observat ion [Identifier] in Cervix by Cyto stain Jazmyne Carreon [employer] Work Phone: Start: 11-27-2017 DISCHARGE PATIENT BRIT HURD Start: 11-27-2017 INITIATE OXYGEN THER APY PROTOCOL BRIT HURD Start: 11-27-2017 DIET GENERAL BRIT AUSTIN IS Start: 11-27-2017 Assay of magnesium BRIT HURD Start: 11-27-2017 Blood count complete automated BR[facility] HURD Start: 11-27-2017 COMPREHENSIVE METABO LIC PANEL W/ REFLEX TO MG FOR LOW K [facility]IT HURD Start: 11-27-2017 EKG 12-LEAD BRIT AUSTIN IS Start: 11-27-2017 EKG REPORT BR[facility] AUSTIN IS Start: 11-27-2017 ACETAMINOPHEN LEVEL TOD Jakob HURD Start: 11-27-2017 PATIENT STATUS (FROM ED OR OR/PROCEDURAL) BRIT HURD Start: 11-27-2017 INITIATE OXYGEN THER APY PROTOCOL BRIT UHRD Start: 11-27-2017 NURSING COMMUNICATION T KARTHIKEYAN HURD Start: 11-27-2017 PLACE INTERMITTENT PNEUMATIC COMPRESSION DEVICE BRIT HURD Start: 11-27-2017 TOBACCO CESSATION EDUCATION BRIT HURD Start: 11-27-2017 ADVANCE DIET TOLE RATED (NURSING COMMUNICATION) BRIT HURD Start: 11-27-2017 DAILY WEIGHTS BRIT COLINDRES Start: 11-27-2017 FULL CODE BRIT GUTIERREZ Start: 11-27-2017 INTAKE AND OUTPUT BRIT HURD Start: 11-27-2017 MISCELLANEOUS NURSIN G CARE ORDER (SPECIFY) BRIT HURD Start: 11-27-2017 NOTIFY PHYSICIAN (SPECIFY) BRIT HURD Start: 11-27-2017 TELEMETRY MONITORING TO DICK HURD Start: 11-27-2017 VITAL SIGNS BRIT GUTIERREZ Start: 11-27-2017 TRANSFER PATIENT BRIT GILBERT Start: [...] wbc BRIT HURD Start: 11-26-2017 ETHANOL BRIT GUTIERREZ Start: 11-26-2017 EKG 12-LEAD BRIT AUSTIN IS Start: 11-26-2017 EKG REPORT BIRT AUSTIN IS Plan of Treatment Date Care Activity Detail Author Start: 01-23-2025 Influenza vaccination Influenza Vaccine [facility] Start: 01-17-2025 End: 01-17-2025 Patient encounter procedure 01/17/2025 1:30 PM EDT Office Visit [facility] [address] [place] [address] Jazmyne Carreon, [employer] [address] [place] [address] [facility] Start: 01-11-2025 Adult BMI Follow Up Plan Adult BMI Follow Up Plan [facility] Start: 01-11-2025 Adult BMI Screening Adult BMI Screening [facility] Start: 01-11-2025 Depression Screening Depression Screening [facility] Start: 01-11-2025 Tobacco Screening Tobacco Screening [facility] Start: 06-18-2024 Adult BMI Follow Up Plan Adult BMI Follow Up Plan [facility] Start: 06-18-2024 Adult BMI Screening Adult BMI Screening [facility] Start: 06-18-2024 Tobacco Screening Tobacco Screening [facility] Start: 05-07-2024 Adult BMI Follow Up Plan Adult BMI Follow Up Plan [facility] Start: 05-07-2024 Adult BMI Screening Adult BMI Screening [facility] Start: 05-07-2024 Tobacco Screening Tobacco Screening [facility] Start: 01-29-2024 End: 01-29-2024 Patient encounter procedure 01/29/2024 10:15 AM EDT Appointment [facility] - Mammogram DEXA [address] [place] [address] [facility] Start: 01-24-2024 COVID-19 Vaccine ( season) COVID-19 Vaccine () [facility] Start: 01-24-2024 Influenza vaccination Influenza Vaccine [facility] Start: 01-12-2024 End: 01-11-2025 CBC W Auto Differential panel - Blood CBC auto differential Lab Routine Mixed hyperlipidemia Expected: 01/12/2024, Expires: 01/11/2025 [facility] Work Phone: Comment on above: Expected: 01/12/2024, Expires: Start: 01-12-2024 End: 01-11-2025 DBT Breast - bilateral screening Mammography screening bilateral with CAD Imaging Routine Encounter for screening mammogram for malignant neoplasm of breast Expected: 01/12/2024, Expires: 01/11/2025 [facility] Comment on above: Expected: 01/12/2024, Expires: Start: 01-12-2024 End: 01-11-2025 Hemoglobin A1c/Hemoglobin.total in Blood Hemoglobin A1c Lab Routine Hyperinsulinemia Expected: 01/12/2024, Expires: 01/11/2025 [facility] Comment on above: Expected: 01/12/2024, Expires: Start: 01-12-2024 End: 01-11-2025 Lipid 1996 panel - Serum or Plasma Lipid profile Lab Routine Mixed hyperlipidemia Expected: 01/12/2024, Expires: 01/11/2025 [facility] Comment on above: Expected: 01/12/2024, Expires: Start: 01-12-2024 End: 01-12-2024 Patient encounter procedure 01/12/2024 2:00 PM EDT Office Visit [facility] [address] [place] [id number] Jazmyne Carreon, [employer] [address] [place] [address] [facility] Start: 01-12-2024 End: 01-11-2025 Thyroid profile includes TSH FT4 Thyroid profile includes TSH FT4 Lab Routine Acquired hypothyroidism Expected: 01/12/2024, Expires: 01/11/2025 [facility] Comment on above: Expected: 01/12/2024, Expires: Start: 12-21-2023 End: 12-21-2023 Patient encounter procedure 12/21/2023 10:30 AM EDT Office Visit [facility] [address] [place] [id number] Jazmyne Carreon, [employer] [address] [place] [address] [facility] Start: 12-18-2023 Depression Screening Depression Screening [facility] Start: 03-31-2023 Ova and Parasite Concentrate Exam Ova and Parasite Concentrate Exam [facility] Start: 03-31-2023 [facility] Start: 03-31-2023 [facility] Start: 03-26-2023 [facility] Start: 01-23-2023 COVID-19 Vaccine ( season) COVID-19 Vaccine () [facility] Start: 01-23-2023 Influenza vaccination Influenza Vaccine [facility] Start: 07-30-2019 Screening for malignant neoplasm of cervix Pap Smear [facility] Start: 01-23-2018 Influenza vaccination INFLUENZA VACCINE (#1) [facility] Work Phone: Start: 2003 Screening for malignant neoplasm of cervix PAP SMEAR DISCUSSION [facility] Work Phone: Start: 2001 DTaP,Tdap and Td Vaccines (1 - Tdap) DTaP,Tdap and Td Vaccines (1 - Tdap) [facility] Start: 2001 Third diphtheria, tetanus and acellular pertussis (DTaP) vaccination TDAP (ADULT) [facility] Work Phone: Start: 2000 Tetanus vaccination TETANUS [facility] Work Phone: Start: 1995 HIV screening HIV SCREENING DISCUSSION [facility] Work Phone: Bacteria identified in Stool by Culture [facility] Calprotectin [Mass/m ass] in Stool [facility] End: 01-11-2025 Comprehensive metabolic 2000 panel - Serum or Plasma Comprehensive metabolic panel Lab Routine Mixed hyperlipidemia 1 Occurrences starting 01/12/2024 until 01/11/2025 [facility] Comment on above: 1 Occurrences starting 01/12/2024 until 01/11/2025 Endomysial antibody IgA level [facility] Gliadin peptide IgA Ab [Units/volume] in Serum [facility] Gliadin peptide IgG Ab [Units/volume] in Serum [facility] HIV 1+2 Ab+HIV1 p24 Ag [Presence] in Serum or Plasma by Immunoassay [facility] IgA [Mass/volume] in Serum or Plasma [facility] End: 01-11-2025 Insulin Insulin Lab Routine Hyperinsulinemia 1 Occurrences starting 01/12/2024 until 01/11/2025 [facility] Comment on above: 1 Occurrences starting 01/12/2024 until 01/11/2025 Tissue transglutamin ase IgA Ab [Units/volume] in Serum [facility] Tissue transglutamin ase IgG Ab [Units/volume] in Serum [facility] Immunizations Immunization Date Immunization Notes Care Provider Fa cili 04-21-2021 COVID-19, mRNA, LNP- S, PF, 30mcg/0.3mL Dose Jazmyne Schlachter [employer] Work Phone: [facility] 03-17-2021 Influenza Vaccine, Quadrivalent, Adjuvanted Jazmyne Schlachter [employer] Work Phone: [facility] 03-17-2021 influenza virus vaccine, unspecified formulation Jazmyne Schlachter [employer] Work Phone: [facility] 02-14-2020 influenza virus vaccine, unspecified formulation Jazmyne Schlachter [employer] Work Phone: [facility] 03-24-2019 influenza virus vaccine, unspecified formulation Jazmyne Schlachter [employer] Work Phone: [facility] 02-27-2009 influenza, seasonal, injectable, preservative free Jazmyne Schlachter [employer] Work Phone: [facility] Payers Date Payer Category Payer Self-pay 2022 Medicare [employer] MEDICARE UHC MEDICARE DUAL COMPLETE [id number] 2022-Present [phone] [address] [address] [place] [address] [id number] 2022 Medicare HMO [facility] MEDIC[facility] [id number] 2022 Private Health Insurance [id number] 2017 Medicare [id number] 2017 Medicaid MEDICAID [facility] EDICAID [id number] 2017-Present [phone] [address] [place] [address] [id number] 2017 Medicaid [id number] 1982 Unknown [id number] 1982 Unknown [id number] 1982 Unknown [id number] 1982 Unknown [id number] 1982 Unknown [id number] Medicaid [id number] Social History Date Type Detail [facility] Work Phone: Start: 1980 Sex Assigned At Not on file [facility] Work Phone: Start: 07-04-2020 End: 06-18-2023 Sex Assigned At [facility] Start: 1980 Sex Assigned At Female F [facility] Start: 09-29-2024 [facility] Start: 06-18-2023 End: 01-12-2024 Alcohol intake Current non-drinker of alcohol (finding) [facility] Start: 07-04-2020 End: 06-18-2023 Alcohol intake [facility] Adolescent depressio n screening assessment 5 [facility] Start: 12-26-2014 Sex Female (finding) [facility] Start: 09-29-2024 Sex Patient sex un known (finding) [facility] Goals Date Patient Goal Desired Activity /State Clinical Notes 03-02-2023 to 01-12-2024 ALEXANDRO White - 01/12/2024 2:00 PM ALEXANDRO Duffy - 06/18/2023 2:30 PM EST Note Date & Type Note Facility 01-12-2024 History of Present illness Narrative Images from the original note were not included. [id number] [facility] [address] Subjective: Nilsa Pulido is a 43 y.o. female who presents for a Medicare Annual Wellness exam. The following portions of the patient's history were reviewed and updated as appropriate: Health Risk Assessment, allergies, past medical history, past surgical history, social history, family history, and immunization history Accompanied by: self History Provided By: self Language and Other Communication Barriers: Primary Language Spoken: Senegalese Highest Level of Education Completed: some college Are You Happy With How Well You Read? yes Diet and Physical Activity: Current Prescribed Diet: Low Fat Diet How would you describe the condition of your mouth and teeth, including false teeth and dentures? Excellent/ dentures Exercise Frequency: Daily Types of Exercise: Walking Health Risk Assessment: Cognitive Screening Do you have trouble remembering or recalling facts or events?: No Do family members or caregivers report that you have difficulty remembering things?: No Depression Screening Little interest or pleasure in doing things: Not at all Feeling down, depressed, or hopeless: Not at all Trouble falling or staying asleep, or sleeping too much: Not at all Feeling tired or having little energy: Not at all Poor appetite or overeating: Not at all Feeling bad about yourself - or that you are a failure or have let yourself or your family down: Not at all Trouble concentrating on things, such as reading the newspaper or watching television: Not at all Moving or speaking so slowly that other people could have noticed. Or the opposite - being so fidgety or restless that you have been moving around a lot more than usual: Not at all Thoughts that you would be better off , or of hurting yourself in some way: Not at all End of Life Planning Do you have a living will?: (!) No Do you have a durable power of wheel buffer?: (!) No Fall Risk Fall Risk Assessment Completed?: Yes Hearing Assessment Do you strain or struggle to hear/understand conversations?: No Do you have trouble hearing the television or radio when others do not?: No Does your family ever voice concerns about your hearing?: No Do you wear hearing aid/s?: No Lifestyle Assessment Do you smoke or use smokeless tobacco?: No If you smoke or use smokeless tobacco, are you ready to quit?: NA Are you exposed to secondhand smoke?: No On average, how many drinks of alcohol do you consume in a week?: None Do you exercise for 30 or more minutes on average at least 3 days a week?: Often Do you have any tooth, denture, or oral problems?: No Do you snore or has anyone told you that you snore?: (!) Yes Do you try to eat a balanced diet?: Yes Do you experience leakage of urine, also known as urinary incontinence?: Never Do you have difficulty performing any of these activities? (check all that apply): None Do you have difficulty performing any of these activities? (check all that apply): None Personal Health During the past 4 weeks, how would you rate your overall health?: Excellent Do you understand how to take all of your medications?: Yes How confident are you that you can control and manage most of your health problems?: Very confident In the past 12 months, how many times have you been hospitalized?: None Safety Assessment Do you have throw rugs on the floor?: (!) Yes Do you feel safe at your home?: Yes Do you feel unsteady when walking?: No Are you having difficulty with driving?: N/A Do you have trouble seeing?: No What assistive device do you use? (check all that apply): None Vitals: Vitals: 01/12/24 1401 BP: 120/70 Pulse: 98 Resp: 18 SpO2: 100% Body mass index is 31.9 kg/m . History: Hospitalizations during the past 12 months: no Patient Active Problem List Diagnosis Date Noted Hypokalemia 11/27/2017 OD (overdose of drug), accidental or unintentional, initial encounter 11/26/2017 Gastroesophageal reflux disease without esophagitis 11/10/2017 Dermatitis 11/10/2017 Hyperinsulinemia 10/30/2017 Kidney stone 10/30/2017 ETD (eustachian tube dysfunction) 09/03/2016 Chronic bilateral thoracic back pain 08/29/2016 History of head injury 08/29/2016 Changes in vision 08/29/2016 Generalized abdominal pain 08/29/2016 Well adult exam 10/17/2015 Mental disability 10/17/2015 Hirsutism 10/17/2015 Past Medical History: Diagnosis Date Anxiety Arthritis Back pain Depression Disease of thyroid gland Hearing loss Neuropathy Vision problems Past Surgical History: Procedure Laterality Date FOOT SURGERY Family History Problem Relation Age of Onset Arthritis Mother Vision loss Mother No Known Problems Father Social History Tobacco Use Smoking status: Never Smokeless tobacco: Never Substance Use Topics Alcohol use: No Alcohol/week: 0.0 standard drinks of alcohol Allergies: No Known Allergies Current Outpatient Medications Medication Sig Dispense Refill escitalopram (LEXAPRO) 10 mg tablet Take 1 tablet (10 mg total) by mouth daily. 30 tablet 0 levothyroxine (SYNTHROID, LEVOTHROID) 50 MCG tablet Take 1 tablet (50 mcg total) by mouth in the morning. 90 tablet 1 No current facility-administered medications for this visit. Immunization History Administered Date(s) Administered COVID-19, mRNA, LNP-S, PF, 30mcg/0.3mL Dose 04/21/2021 Influenza (IM) Preservative Free 02/27/2009 Influenza Vaccine, Quadrivalent, Adjuvanted 03/17/2021 Influenza, Unspecified 03/24/2019, 02/14/2020 Medication Adherence: Original 4-item [place] Scale Do you ever forget to take your medicine? no Are you careless at times about taking your medicine? no When you feel better, do you sometimes stop taking your medicine? no Sometimes if you feel worse when you take your medicine, do you stop taking it? no Score: 0 Scoring: high-low; yes=0 no=1. Range 0-4. By reversing the wording of four questions about the way patients might experience drug omissions, the sum of yes answers would provide a composite measure of non-adherence. Higher scores indicate higher adherence. Cognitive Screening: Clock Drawing Test: Normal Mini-Co/3 Patient Concerns for Cognitive Function: no Family Concerns for Cognitive Function: no Sensory Screening: Hearing right ear: normal Hearing left ear: normal Can you hear what a person says without seeing his/her face, if spoken in a normal voice from across the room? Yes Can you hear what a person says without seeing his/her face, if that person whispers to you from across a room? Yes Do you use a hearing aid: No Review of Systems: Review of Systems Constitutional: Negative for fatigue, fever and unexpected weight change. HENT: Negative for congestion, ear pain, sinus pressure, sinus pain and sore throat. Eyes: Negative for photophobia, pain, discharge and visual disturbance. Wears glasses Respiratory: Negative for cough and shortness of breath. Cardiovascular: Negative for chest pain, palpitations and leg swelling. Gastrointestinal: Negative for abdominal pain, diarrhea, nausea and vomiting. Endocrine: Negative for polydipsia, polyphagia and polyuria. Genitourinary: Negative for difficulty urinating, frequency, hematuria and urgency. Musculoskeletal: Negative for arthralgias, gait problem, joint swelling and neck pain. Skin: Negative for pallor and rash. Neurological: Negative for dizziness, weakness, light-headedness and numbness. Psychiatric/Behavioral: Negative for sleep disturbance. The patient is not nervous/anxious. Objective: Physical Exam Constitutional: Appearance: She is well-developed. HENT: Head: Normocephalic and atraumatic. Right Ear: Tympanic membrane, ear canal and external ear normal. Left Ear: Tympanic membrane and external ear normal. There is impacted cerumen. Nose: Nose normal. Mouth/Throat: Mouth: Mucous membranes are moist. Eyes: Conjunctiva/sclera: Conjunctivae normal. Pupils: Pupils are equal, round, and reactive to light. Cardiovascular: Rate and Rhythm: Normal rate and regular rhythm. Heart sounds: Normal heart sounds. Pulmonary: Effort: Pulmonary effort is normal. Breath sounds: Normal breath sounds. Abdominal: General: Bowel sounds are normal. Palpations: Abdomen is soft. Musculoskeletal: General: Normal range of motion. Cervical back: Normal range of motion. Skin: General: Skin is warm and dry. Neurological: Mental Status: She is alert and oriented to person, place, and time. Psychiatric: Mood and Affect: Mood normal. Behavior: Behavior normal. Hospital Outpatient Visit on 05/26/2023 Component Date Value Ref Range Status Prolactin 05/26/2023 7.8 3.3 - 26.7 ng/mL Final Luteinizing hormone 05/26/2023 5.3 mIU/mL Final Comment: NORMAL FEMALE Follicular 2.1-10.9 mIU/mL Mid Cycle 19.2-103 mIU/mL Luteal 1.2-12.9 mIU/mL Post [place] 10.9-58.6 mIU/mL Follicle stimulating hormone 05/26/2023 5.1 mIU/mL Final Comment: NORMAL FEMALE Luteal 1.8-5.1 mIU/mL Follicular 3.8-8.8 mIU/mL Mid Cycle 4.5-22.5 mIU/mL Post [place] 16.7-113.6 mIU/mL White Blood Cells 05/26/2023 7.2 4.0 - 11.0 X10E9/L Final RBC count 05/26/2023 4.44 3.80 - 5.20 X10E12/L Final Hemoglobin 05/26/2023 13.5 11.7 - 15.5 g/dL Final Hematocrit 05/26/2023 39.7 35 - 47 % Final MCV 05/26/2023 89 80 - 100 fL Final MCH 05/26/2023 30.3 27 - 34 pg Final MCHC 05/26/2023 33.9 32 - 36 g/dL Final RDW 05/26/2023 14.1 11.5 - 15.0 % Final Platelets 05/26/2023 338 150 - 450 X10E9/L Final MPV 05/26/2023 6.7 (L) 7 - 12 fL Final Advanced Directives: Living Will: No DPA for Health Care: No Discussion and Summary: Risk findings: none Personalized Prevention Plan Services: Specialty Evaluation Advised:N/A Preventative Programs Recommended: N/A Prevention Counseling and Education Materials:N/A Diseases: N/A Immunizations: N/A Nutrition: N/A Activity/Exercise/Safety/Misc: N/A The above recommendations were discussed with the patient. Medicare Available Services: Medicare Available Services Admin of Pneumococcal Vaccine: Not applicable Admin of influenza vaccine: Completed Admin of Hep B vaccine: Not applicable AAA ultrasound screening: Not applicable Screening mammography: Recommended Screening pap and pelvic exam: Completed Prostate cancer screening: Not applicable Colorectal cancer screening tests: Not applicable DM outpatient self management training services: Not applicable Bone mass measurements: Not applicable Cardiovascular screening blood tests: Recommended DM screening blood tests: Recommended Smoking cessation counseling: Not applicable Counseling to prevent tobacco use: Not applicable Screening/counseling to reduce alcohol misuse: Not applicable Behavioral therapy for obesity: Not applicable STI infection screening and behavioral counseling: Not applicable Medical nutrition therapy services for DM: Not applicable Medical nutrition therapy services: Not applicable Copy to patient and copy in patient's medical record. Assessment/Plan: Nilsa Kaur Tess has been seen for a well visit today. Preventative recommendations were reviewed. Any chronic conditions that have been addressed include those listed below. Nilsa was seen today for annual exam. Diagnoses and all orders for this visit: Encounter for Medicare annual wellness exam Acquired hypothyroidism Mixed hyperlipidemia Drug abuse (CMS-HCC) Anxiety and depression Heroin addiction (CMS-HCC) Hyperinsulinemia Patient noted to have elevated BMI and the following intervention(s) were applied: encouragement to exercise. Follow Up: CBC,CMP, lipids, thyroid- will call with results Mammogram- to schedule Follow up in the office in 12 months and as needed ALEXANDRO White 01/12/24 1431 [facility] History of Present illness Narrative Images from the original note were not included. [address] [place] [address] SUBJECTIVE: Patient ID: Nilsa Pulido is a 43 y.o. female. Patient presents to the office for routine check up. She is doing well with no complaints. She has lost almost ten pounds since her last appointment. She is working on portion sizes. She is still seeing psychiatry and doing well. Follow-up Pertinent negatives include no abdominal pain, arthralgias, chest pain, congestion, coughing, fatigue, fever, joint swelling, nausea, neck pain, numbness, rash, sore throat, vomiting or weakness. The following portions of the patient's history were reviewed and updated as appropriate: allergies, current medications, past family history, past medical history, past social history, past surgical history and problem list. REVIEW OF SYSTEMS: Review of Systems Constitutional: Negative for fatigue, fever and unexpected weight change. HENT: Negative for congestion, ear pain, sinus pressure, sinus pain and sore throat. Eyes: Negative for photophobia, pain, discharge and visual disturbance. Respiratory: Negative for cough and shortness of breath. Cardiovascular: Negative for chest pain, palpitations and leg swelling. Gastrointestinal: Negative for abdominal pain, diarrhea, nausea and vomiting. Endocrine: Negative for polydipsia, polyphagia and polyuria. Genitourinary: Negative for difficulty urinating, frequency, hematuria and urgency. Musculoskeletal: Negative for arthralgias, gait problem, joint swelling and neck pain. Skin: Negative for pallor and rash. Neurological: Negative for dizziness, weakness, light-headedness and numbness. Psychiatric/Behavioral: Negative for sleep disturbance. The patient is not nervous/anxious. PHYSICAL EXAMINATION: Vitals: 06/18/23 1412 BP: 128/74 Pulse: 88 Resp: 18 SpO2: 98% Weight: 112 kg (247 lb) Physical Exam Constitutional: Appearance: She is well-developed. HENT: Head: Normocephalic and atraumatic. Right Ear: External ear normal. Left Ear: External ear normal. Eyes: Conjunctiva/sclera: Conjunctivae normal. Pupils: Pupils are equal, round, and reactive to light. Cardiovascular: Rate and Rhythm: Normal rate and regular rhythm. Heart sounds: Normal heart sounds. Pulmonary: Effort: Pulmonary effort is normal. Breath sounds: Normal breath sounds. Musculoskeletal: Cervical back: Normal range of motion. Skin: General: Skin is warm and dry. Neurological: Mental Status: She is alert and oriented to person, place, and time. Psychiatric: Mood and Affect: Mood normal. ASSESSMENT/PLAN: Nilsa was seen today for follow-up. Diagnoses and all orders for this visit: Acquired hypothyroidism Mixed hyperlipidemia Drug abuse ([facility]) Anxiety and depression Heroin addiction ([facility]) Severe obesity (BMI 35.0-39.9) with comorbidity ([facility]) Other orders - levothyroxine (SYNTHROID, LEVOTHROID) 50 MCG tablet; Take 1 tablet (50 mcg total) by mouth in the morning. Follow-up: Refilled levothyroxine 50mcg daily Follow up in six months for routine medicare wellness Keep appointments with psychiatry Great work on weight loss! Patient noted to have elevated BMI and the following intervention(s) were applied: encouragement to exercise. ALEXANDRO White 06/18/23 1439 documented in this encounter [facility] 03-31-2023 Procedure note [facility] 03-02-2023 Evaluation note Encounter Date Diagnosis Assessment Notes Feb, Diarrhea (ICD-10 - R19.7) Feb, Hemorrhoid (ICD-10 - K64.9) [place] [employer] Other Evaluation noteNo assessment information available [facility] Work Phone: Evaluation noteNo InformationNortFirst [facility] [email or web address] Other Evaluation note* Diagnosis Acquired hypothyroidism- Primary Unspecified hypothyroidism Mixed hyperlipidemia Drug abuse (CMS-HCC) Other, mixed, or unspecified nondependent drug abuse, unspecified Anxiety and depression Heroin addiction (CMS-HCC) Opioid type dependence, unspecified abuse Severe obesity (BMI 35.0-39.9) with comorbidity (CMS-HCC) documented in this encounter [facility]* Diagnosis Encounter for Medicare annual wellness exam- Primary Acquired hypothyroidism Unspecified hypothyroidism Mixed hyperlipidemia Drug abuse (CMS-HCC) Other, mixed, or unspecified nondependent drug abuse, unspecified Anxiety and depression Heroin addiction ([facility]) Opioid type dependence, unspecified abuse Hyperinsulinemia Encounter for screening mammogram for malignant neoplasm of breast documented in this encounter [facility] and [facility] Author Chuck Souza [facility] March 31, 2023 9:28am Note Date/Time March 31, 2023 9 :29am [facility] [address] [place] [address] Gastroenterology H&P Signed Patient: Nilsa Pulido MR #: [id number] : 1980 Acct:[id number] Age/Sex: 42 / F Adm Date: 3 Loc: Room: Type: [facility] Attending Dr: Chuck Souza MD Copies to: [...] <Electronically signed by Chuck Souza MD> 03/31/23927 [facility] Work Phone: History general Narrative - Reported* Type Description Date Medical History chronic depression Medical History Hypothyroidism Surgical History kidney stone Hospitalization History see above [email or web address] Other Hospital Discharge instructions Additional Instructions DISCHARGE INSTRUCTIONS [...] -Follow up in the office -Office number [phone]. [facility] Work Phone: Instructions* Attachments The following attachments cannot be sent through Care Everywhere. * Hypothyroidism (underactive thyroid) ([place]egalese) [facility] SystemInstructionsNot on file documented [facility] System[facility]* Attachments The following attachments cannot be sent through Care Everywhere. * Hypothyroidism (underactive thyroid) ([place]e) [facility] Summary Purpose Family History No Family History Records Found Relationship Condition Age at Onset Recorded Date/T judah family member Dementia Unknown Myocardial infarction Unknown Not Specified Diabetes mellitus Unknown Relationship Condition Age at Onset Recorded Date/T judah family member Dementia Unknown Myocardial infarction Unknown mother Diabetes mellitus Unknown father Unknown Advance Directives No Advanced Directives Records Found Advance Directive Response Recorded Date/ Time Advance Directives No March 26, 2023 7:11am Advance Directive Response Recorded Date/ Time Advance Directives No March 27, 2023 1:36pm Advance Directive Response Recorded Date/ Time Advance Directives No March 27, 2023 2:36pm Chief Complaint and Reason for Visit Chief Complaint r19.7 Chief Complaint r19.7 Diarrhea Chief Complaint Admit Date August 23, 2024 2:26 pm poss bug bite on neck September 29, 2024 6:52 pm Additional Source Comments INFORMATION SOURCE (unrecogn ized section and content) DATE CREATED AUTHOR [facility]/27/2017 [facility] DATE CREATED AUTHOR AUTHOR'S ORGANIZ ATION 03/19/2018 [facility] DATE CREATED AUTHOR AUTHOR'S ORGANIZ ATION 05/30/2023 [facility] DATE CREATED AUTHOR AUTHOR'S ORGANIZ ATION 01/14/20[facility] DATE CREATED AUTHOR AUTHOR'S ORGANIZ ATION 11/11/2024 [facility] REASON FOR VISIT (unrecogniz ed section and content) Reason Comments Follow-up Reason Onset Date Comments Med Refill 12/21/2023 Reason Comments Annual Exam Reason Onset Date Comments Med Refill 08/25/2024 Care Teams (unrecognized sec tion and content) Team Status: Active Member Role Status Dates NON STAFF Primary Care Provider Active Team Status: Active Member Role Status Dates NON STAFF Primary Care Provider Active Start: August 23, 2024 Rocky Sandoval MD Attending Provider Active Start: August 23, 2024 Team Status: Inactive Member Role Status Dates NON STAFF Primary Care Provider Active Start: September 29, 2024 End: September 29, 2024 Leigh Ann Ye APRN Attending Provider Active Start: September 29, 2024 End: September 29, 2024 Team Status: Inactive Member Role Status Dates NON STAFF Primary Care Provider Active Chuck Souza MD Attending Provider Active Percussion Tuner Relationship Specialty Start Date End Date Jazmyne Carreon APRN-CUSTOMER OPERATIONS INTERN [address] [place] [address] PCP - General Family Medicine 01/13/20 Percussion Tuner Relationship Specialty Start Date End Date Jazmyne Carreon GROCERY SHOPPER-CUSTOMER OPERATIONS INTERN [address] [place] [address] PCP - General Family Medicine 01/13/20 Percussion Tuner Relationship Specialty Start Date End Date Jazmyne Carreon APRN-CUSTOMER OPERATIONS INTERN [address] [place] [address] PCP - General Family Medicine 01/13/20 Percussion Tuner Relationship Specialty Start Date End Date Jazmyne Carreon GROCERY SHOPPER-CUSTOMER OPERATIONS INTERN [address] [place] [address] PCP - General Family Medicine 01/13/20 Goals (unrecognized section and content) Goals may [...] BE BASED ON THE PRIMARY CLINICAL RECORDS. [facility] [employer] [facility]. provides no warranty or guarantee of the accuracy or completeness of information in this document.
== END 2024-11-30 16:02 | disposition home or self-care (01) ==
PROVIDERS: Emergency Provider Emergency Medicine; PCP Nurse Practitioner Family
DX: L25.8 Unspecified contact dermatitis due to other agents (principal)
CPT/HCPCS: 96372; 99284; J2919

== ENCOUNTER 2025-04-04 10:55 | Outpatient (OUT) | payer MEDICARE, SELFPAY ==
--- OUTSIDE RECORDS SUMMARY | 2025-04-04 11:05 | XMS_ITS | Clinical Summary ---
Author Organization [employer] [facility] tem Address [facility] [id number] [address] [place] [address] Care Team Providers Care Drum Tender Name Role Phone Stephie Carreon APRN-LABOR CUSTODIAN Primary Care Provide r Allergies No known active allergies Medications MedicationSigDispense QuantityRefillsLast FilledStart DateEnd DateStatus escitalopram (LEXAPRO) 10 mg tablet Take 1 tablet (10 mg total) by mouth daily. 30 tablet 1Active levothyroxine (SYNTHROID, LEVOTHROID) 50 MCG tablet Take 1 tablet (50 mcg total) by mouth in the morning. 90 tablet 5Active Active Problems ProblemNoted DateDiagnosed OjntOwvvkbuczbx12/06/2018OD (overdose of drug), accidental or unintentional, initial dryootafk89/05/2018Gastroesophageal reflux disease without vgpxocgydhf15/19/0971Hdbklvqrby29/19/2018Hyperinsulinemia 10/30/2017Kidney stone10/30/2017ETD (eustachian tube dysfunction)09/03/2016 Chronic bilateral thoracic back pain08/29/2016History of head dcvmfj3908/29/2016 Changes in vghzji1208/29/2016Generalized abdominal pain08/29/2016Well adult exam 10/17/2015Mental guewgubtij09/25/0118Qgjzklrdj62/25/2016 Resolved Problems ProblemNoted DateDiagnosed DateResolved DateSevere obesity (BMI 35.0-39.9) with ecxixjemnhp70/13/202008/Heroin xytlmidgts092Cocaine abuseHeroin overdose, accidental or unintentional, initial smflxhkve29GERD without yrvdrqanrke33Nausea & intioyxy84Acquired lmuovlrzbdslvu86Slow transit ithdsbnzagpd38Abdominal Calculus of lcfcde51Fracture of skull and facial bones Head injury with skull srkcutgn13 Luurviysgw62Grief epozvqsh13Dysuria Vaginal mezpafqchmp92Depression10/17/2015 08/29/2016Right acute serous otitis mediaHearing loss of right earFluency disorder associated with underlying disease Tinea pedis of both feet Encounters DateTypeDepartmentCare DgywEhoysyhajqw62/09/2025 1:30 PM EDTOffice Visit [facility] [address] [place] [phone] Stephie Carreon, LITHARGE SUPERVISOR-LABOR CUSTODIAN Acquired hypothyroidism (Primary Dx); Mixed hyperlipidemia; Drug abuse ([facility]); Anxiety and depression; Heroin addiction ([facility]); Hyperinsulinemia; Severe obesity (BMI 35.0-39.9) with comorbidity ([facility]); Dermatitis; Mental disability; Jlfdgnkjw64/09/2025Travelfrom Last 3 Months Immunizations ImmunizationAdministration DatesNext DueCOVID-19, mRNA, LNP-S, PF, 30mcg/0.3mL Dose04/21/2021Influenza (IM) Preservative Free02/27/2009Influenza Vaccine, Quadrivalent, Visxovycvi86/24/2021Influenza, Ualbrobsauu26/22/2020,03/24/2019 Family History Medical HistoryRelationNameCommentsNo Known ProblemsFatherArthritisMotherVision lossMotherRelationNameStatusCommentsFatherAliveMotherAlive Social History Tobacco UseTypesPacks/DayYears UsedDateSmoking Tobacco: NeverSmokeless Tobacco: Never Tobacco Cessation:Counseling Given: Not Answered Alcohol UseStandard Drinks/WeekCommentsNo0 (1 standard drink = 0.6 oz pure alcohol)PHQ-2AnswerDate RecordedTotal Tudxc913/09/2025ChildcareAnswerDate NfcpksnqDcmugdgufVkgzaib21/11/2019EmploymentAnswerDate RecordedEmploymentUnknown 11/02/2018Hunger ScreeningAnswerDate RecordedWithin the past 12 months we worried whether our food would run out before we got money to buy more.Never True03/02/2025Within the past 12 months the food we bought just didn't last and we didn't have money to get more.Never True03/02/2025Purpose - LifeAnswerDate RecordedPurpose and direction in fmitZuhooik48/10/2021CommentsNoSex and Gender InformationValueDate RecordedSex Assigned at BirthNot on fileLegal Sex Otzzkw8012/26/2014 7:42 PM EDTGender IdentityNot on fileSexual OrientationNot on file Last Filed Vital Signs Vital SignReadingTime TakenCommentsBlood Cdedtujg100/8010 1:44 PM EDT Wastq815803/02/2025 1:44 PM BRNPnhwqpxjrtk62.1 ??C (97 ??F)06/13/2021 8:04 AM EST Respiratory Udjw5332 1:44 PM EDTOxygen Qsjafgvnxs96%03/02/2025 1:44 PM EDTInhaled Oxygen Concentration--Qqgiml427.9 kg (249 lb)03/02/2025 1:44 PM EDT Oiuzoz379.3 cm (5' 9 )05/05/2023 3:06 PM ESTBody Mass Index36.7705/05/2023 3:06 PM EST Plan of Treatment DateTypeDepartmentCare Team (Latest Contact Info)Ljcwptelngj28/03/2025 1:30 PM ESTOffice Visit [facility] [address] [place] [phone] Stephie Carreon, ANT-LABOR CUSTODIAN [address] [place], [place] [phone] Health MaintenanceDue DateLast DoneCommentsPap Smear, 01/08/2017Adult BMI Urrjjjngc31Depression Rtnvltcln32/09/2026 03/02/2025Tobacco Rotifuogh48DTaP,Tdap and Td Vaccines (2 - Td or Tdap)4COVID-19 LyjqxmyYrdbnvooh92/10/2025, 02/23/2023, 04/21/2021, Additional history existsInfluenza PzkqmlhEusfyccbd27/10/2025, 02/23/2023, 03/09/2022, Additional history exists Medical Devices Not on file Procedures Procedure NamePriorityDate/TimeAssociated DiagnosisCommentsHM PAP SMEARRoutine 07/29/2018from Last 3 Months or Most Recently Relevant to Health Maintenance Results * PAP SMEAR (07/29/2018)Specimen (Source)Anatomical Location / Laterality Collection Method / VolumeCollection TimeReceived Time07/29/2018 Narrative Authorizing ProviderResult TypeResult StatusScanning Provider ExternalHEALTH MAINTENANCEFinal ResultPerforming OrganizationAddressCity/State/ZIP CodePhone Number MANUALLY TRANSCRIBED RESULTS from Last 3 Months or Most Recently Relevant to Health Maintenance Insurance Care Teams Team MemberRelationshipSpecialtyStart DateEnd Date Stephie Carreon APRN-JAMES [address] [place] [address] [address] [facility]01/13/20
--- OUTSIDE RECORDS SUMMARY | 2025-04-04 11:18 | XMS_ITS | CCD ---
[facility] Care Team Providers Care Facilitator Name Role Phone BRIT HURD Unavailable Unavailable BLOOD, MORRIS Polanco Unavailable Unavailable BLOOD, MORRIS Polanco Unavailable Unavailable ROSEMARY TAVERA Unavailable Unavailabl e Unavailable Primary Care Provider UnavailChuck Barbosa Unavailable NON STAFF Primary Care Provider Unavaillv Souza MD Imad Attending Provider NON STAFF Primary Care Provider Unavaillv Souza MD Imad Attending Provider LY BOYLE Referring Unavailable JAZMYNE CARREON Primary Care Unavailable Lauri PENETRATION TESTERJazmyne BAXTER Primary Care Provide r Jazmyne Hood Primary Care Provide r NON STAFF Primary Care Provider Rocky Mon MD Attending Provider [phone] JAZMYNE CARREON Attending Unavailable JAZMYNE CARREON Referring Unavailable JAZMYNE CARREON Primary Care Unavailable Rocky Sandoval Attending Unavailab le Rocky Sandoval Admitting Unavailab le NON STAFF Primary Care Unavailable Medications Current Medications MedicationDrug Class(es)DatesSig (Normalized)Sig (Original)cariprazine 1.5 mg oral capsule (1 source)Atypical AntipsychoticStart: 23-91-9801lxkm 1 capsule by mouth once dailyCariprazine (Vraylar) 1.5 mg capsule Active 1.5 MG PO Daily September 29, 2024 12:00amescitalopram 10 mg oral tablet (9 sources)Serotonin Reuptake InhibitorStart: 62-41-0922zvfl 1 tablet by mouth once dailyescitalopram (LEXAPRO) 10 mg tablet Take 1 tablet (10 mg total) by mouth daily. 30 tablet 02/18/2021 Activelevothyroxine sodium 0.05 mg oral tablet (12 sources)l-ThyroxineStart: 01-27-2023 End: 41-06-4231ofed 1 tablet by mouth in the morninglevothyroxine (SYNTHROID, LEVOTHROID) 50 MCG tablet Take 1 tablet (50 mcg total) by mouth in the morning. 90 tablet 1 08/25/2024 ActiveLevothyroxine Sodium 50 MCG Oral for 90 Days Active Completed/Discontinued Medications MedicationDrug Class(es)DatesSig (Normalized)Sig (Original)ARIPiprazole 5 mg oral tablet (2 sources)Atypical AntipsychoticStart: 03-31-2023 End: 71-85-8240kwxc 1 tablet by mouth once dailyAripiprazole 5 mg tablet Discontinued 5 MG PO Daily March 31, 2023 1:00am September 29, 2024 6:57pm Problems Active Problems Problem ClassificationProblemDateDocumented DateEpisodic/ChronicAnxiety disorders (4 sources)Mixed anxiety and depressive disorder; Translations: [Anxiety disorder, unspecified]Onset: 150089-22-7551NebkjzbLafllxacvcyou disorders (7 sources)Intellectual disability; Translations: [Unspecified intellectual disabilities]Onset: 949037-91-0963UfjarabDqpwnesau of lipid metabolism (4 sources)Mixed hyperlipidemia; Translations: [Mixed hyperlipidemia]Onset: 704250-73-8924UgflpcePqfmwxffwk disorders (10 sources)Gastroesophageal reflux disease without esophagitis; Translations: [Gastro-esophageal reflux disease without esophagitis]Onset: 10-06-2016 Resolved: 769536-70-0208KartietGichkajknvs (1 source)Unspecified hemorrhoidsEpisodicMood disorders (6 sources)Mood disorders; Translations: [Depression, unspecified]Onset: 12-17-2022 Resolved: Other endocrine disorders (7 sources)Hyperinsulinism; Translations: [Other hypoglycemia]Onset: 10-30-2017 61-83-0092PljmobmJvgot endocrine disorders (1 source)Other hypoglycemia; Translations: [Other hypoglycemia]Onset: 31-58-1993GugtxceZvkgd female genital disorders (1 source)Other specified abnormal uterine and vaginal bleeding; Translations: [Other specified abnormal uterine and vaginal bleeding]Onset: 28-71-7149Cqfsfjx Other gastrointestinal disorders (2 sources)Diarrhea; Translations: [Diarrhea, unspecified]EpisodicOther gastrointestinal disorders (1 source)Diarrhea, unspecifiedEpisodicOther nutritional; endocrine; and metabolic disorders (7 sources)Severe obesity; Translations: [Morbid (severe) obesity due to excess calories]Onset: 01-05-2020 Resolved: 577005-21-0777PerxtvcJmjze nutritional; endocrine; and metabolic disorders (1 source)Morbid (severe) obesity due to excess calories; Translations: [Morbid (severe) obesity due to excess calories]Onset: 67-07-3068SvdqkckVpaxb skin disorders (6 sources)Hirsutism; Translations: [Hirsutism]Onset: EpisodicSubstance-related disorders (18 sources)Drug abuse; Translations: [Other psychoactive substance abuse, uncomplicated]Onset: 11-27-2017 Resolved: 982017-23-0691ThzdzxmAjozpgcad-etoxuwo disorders (1 source)Poisoning by heroin, accidental (unintentional), initial encounter; Translations: [Poisoning by heroin, accidental (unintentional), initial encounter]Onset: 16-25-6017Cepjlse disorders (10 sources)Acquired hypothyroidism; Translations: [Hypothyroidism, unspecified] Onset: 08-29-2016 Resolved: 449800-45-3323AuilxhvHwphkqyxdyjy (1 source)RashOnset: 03-02-2025 Past or Other Problems Problem ClassificationProblemDateDocumented DateEpisodic/ChronicAbdominal pain (5 sources)Generalized abdominal pain; Translations: [Generalized abdominal pain]Onset: 534028-64-8148GmhqexauUtxpgmajmt disorders (5 sources)Grief finding; Translations: [Adjustment disorder with depressed mood]Onset: 10-17-2015 Resolved: 546615-63-0628RlojrscCjbtuxei reactions (7 sources)Inflammatory dermatosis; Translations: [Dermatitis, unspecified] Onset: 941079-27-9855UovpykcnRrdxvaulq and vision defects (5 sources)Eye / vision finding; Translations: [Unspecified visual disturbance] Onset: 351469-78-4761NbqcdqflMlhltyge of urinary tract (10 sources)Kidney stone; Translations: [Calculus of kidney]Onset: 10-17-2015 Resolved: 516084-80-1401VbyeudrsKckkn and electrolyte disorders (5 sources)Hypokalemia; Translations: [Hypokalemia]Onset: EpisodicGenitourinary symptoms and ill-defined conditions (5 sources)Dysuria; Translations: [Dysuria]Onset: 10-17-2015 Resolved: 902650-65-7876UjjjezquSfdcokjla disorders (5 sources)Amenorrhea; Translations: [Amenorrhea, unspecified]Onset: 10-17-2015 Resolved: 392552-71-6624MzsdpufLbow disorders (6 sources)Depressive disorder; Translations: [Depression]Onset: 10-17-2015 Resolved: 483638-21-5223VcttzcdNvchjma (10 sources)Candidiasis of vagina; Translations: [Vaginal candidiasis]Onset: 10-17-2015 Resolved: 339223-10-7608CihahlqiQyrcvk and vomiting (5 sources)Nausea and vomiting; Translations: [Nausea with vomiting, unspecified]Onset: 10-06-2016 Resolved: 539343-31-3639FwhztzcbLscnu ear and sense organ disorders (5 sources)Hearing loss of right ear; Translations: [Unspecified hearing loss, right ear]Onset: 10-17-2015 Resolved: 532328-40-3444PsoqsrwBikve gastrointestinal disorders (5 sources)Slow transit constipation; Translations: [Slow transit constipation] Onset: 08-29-2016 Resolved: 377478-06-9844JfzlbftdPjtxb gastrointestinal disorders (4 sources)Swollen abdomen; Translations: [Abdominal distension (gaseous)]Onset: 08-29-2016 Resolved: 188905-36-6472EpvtamycOrxnl gastrointestinal disorders (1 source)Abdominal distension ; Translations: [Abdominal distension (gaseous)] Onset: 08-29-2016 Resolved: 076225-03-8089AkfeocqmNydam injuries and conditions due to external causes (5 sources)H/O: head injury; Translations: [Personal history of other (healed) physical injury and trauma]Onset: 082921-84-0656UmcsrkbqXwxfl nervous system disorders (5 sources)Disorder of fluency; Translations: [Fluency disorder in conditions classified elsewhere]Onset: 10-17-2015 Resolved: 136769-16-7983JyydihcxRuvwy screening for suspected conditions (not mental disorders or infectious disease) (1 source)Patient encounter status; Translations: [Encounter for screening mammogram for malignant neoplasm of breast]96-30-7322FdptwfhiUrqrq skin disorders (1 source)Hirsutism; Translations: [Hirsutism]Onset: 13-65-3771HdbrhuebVixhvj media and related conditions (10 sources)Dysfunction of eustachian tube; Translations: [Unspecified Eustachian tube disorder, unspecified ear]Onset: 10-17-2015 Resolved: 582752-70-7951LfxptemsTjgjeasdc by other medications and drugs (5 sources)Poisoning by unspecified drugs, medicaments and biological substances, accidental (unintentional), initial encounter; Translations: [Poisoning by unspecified drug or medicinal substance]Onset: 11-26-2017 33-54-5260VivpmdzkVbncs and face fractures (10 sources)Fracture of skull and facial bones; Translations: [Unspecified fracture of skull, initial encounterfor closed fracture]Onset: 10-17-2015 Resolved: 071038-01-6398GoquddyzJywjcvsvuta; intervertebral disc disorders; other back problems (5 sources)Chronic thoracic back pain; Translations: [Pain in thoracic spine] Onset: 384376-77-6933JnovsdnjXvvarqqad-zpwoagp disorders (5 sources)Accidental heroin overdose; Translations: [Poisoning by heroin, accidental (unintentional), initialencounter]Onset: 11-26-2017 Resolved: 083986-58-2969HzxntgrfPlsdfviwblku (5 sources)Onset: 06-18-2023 Resolved: Results Test NameValueInterpretationReference RangeFacilityCOMPLETE BLOOD COUNTon 08-55-1944Ctusnvoogsk distribution width (RBC) [Ratio]14.1 %Qpzymi61.5-15.0 [facility] HospitalComment on above:Performed By: #### 2842-3, 69784-8, 89698-4, CBC #### [facility] ([id number]) [address], [address] [place], [place] [address]Bagjgdywfu (Bld) [Volume fraction]39.7 %Mloyhh71-44LhqWcsvgnProMedica Fostoria Community HospitalComment on above:Performed By: #### 2842-3, 41764-9, 85288-8, CBC #### [facility] ([id number]) [address], [address] [place], [place] [address]Gztiumyyep (Bld) [Mass/Vol]13.5 g/pGUzmphj72.7-15.5PParkview Health Montpelier HospitalComment on above:Performed By: #### 2842-3, 25861-8, 13333-1, CBC #### [facility] ([id number]) [address], [address] [place], [place] [address]SCA (RBC) [Entitic mass]30.3 gzZokclt28-81PcuKsavvwNacogdoches Medical CenterComment on above:Performed By: #### 2842-3, 18200-1, 34537-3, CBC #### [facility] ([id number]) [address], [address] [place], [place] [address]YOKS (RBC) [Mass/Vol]33.9 g/lDZvioor82-43KsfNgaqkxNacogdoches Medical CenterComment on above:Performed By: #### 2842-3, 61162-8, 16348-3, CBC #### [facility] ([id number]) [address], [address] [facility] [place] [address]MBA (RBC) [Entitic vol]89 mGZsrtlr29-205XrcVamxrd [facility] HospitalComment on above:Performed By: #### 2842-3, 80410-6, 81561-8, CBC #### [facility] ([id number]) [address], [address] [place] [address]Tcxnjqpc mean volume (Bld) [Entitic vol]6.7 fLLow7-12[facility] HospitalComment on above:Performed By: #### 2842-3, 95830-6, 19183-8, CBC #### [facility] ([id number]) [address], [address] [place] [address]Nnuexbgyj (Bld) [#/Vol]338 10*3/sLEqlqqf438-764DvyUhfblc [facility] HospitalComment on above:Performed By: #### 2842-3, 32157-6, 09850-8, CBC #### [facility] ([id number]) [address], [address] [place], [place] [address]GGH COUNT4.44 X10E12/LNormal3.80-5.20[facility] Comment on above:Performed By: #### 2842-3, 08340-5, 24042-4, CBC #### [facility] ([id number]) [address], [address] [place] [address]HZH (Bld) [#/Vol]7.2 10*3/uLNormal4.0-11.0[facility] HospitalComment on above:Performed By: #### 2842-3, 31573-3, 35326-3, CBC #### [facility] ([id number]) [address], [address] [place] [address]Bajcjavqxmh Qnon 38-48-0867FIQQSFNY STIM HORMONE5.1 mIU/mLNormal [facility] HospitalComment on above:Result Comment: NORMAL FEMALE Luteal 1.8-5.1 mIU/mL Follicular 3.8-8.8 mIU/mL Mid Cycle 4.5-22.5 mIU/mL [place] 16.7-113.6 mIU/mL Performed By: #### 2842-3, 06356-1, 35871-2, CBC #### [facility] ([id number]) [address], [address] [place], [place] [address]Qnzjxhaa Qnon 03-03-2781LDSIZJDPPZP HORMONE5.3 mIU/mLNormal [facility] HospitalComment on above:Result Comment: NORMAL FEMALE Follicular 2.1-10.9 mIU/mL Mid Cycle 19.2-103 mIU/mL Luteal 1.2-12.9 mIU/mL [place] 10.9-58.6 mIU/mL Performed By: #### 2842-3, 77099-9, 49414-5, CBC #### [facility] ([id number]) [address], [address] [place], [place] [address]Wuxwtljyg [Mass/Vol]on 46-40-8365SPCNWTGER7.8 ng/mLNormal 3.3-26.7[facility] HospitalComment on above:Performed By: #### 2842-3, 64065-2, 34269-7, CBC #### [facility] ([id number]) [address], [address] [place], [place] [address]UYJ ( test) IA.rapid Ql (U)Ordered By: Chuck Souza on 53-09-6603ZTQ ( test) Ql (U)NegativeWestern Reserve HospitalNo Panel InformationOrdered By: Chuck Souza on 99-66-5253Yim and Parasite Result 1 N/[facility] HospitalOva or parasites identificationOrdered By: Imad Asaad on 63-45-4449Exs and parasites identified LM Nom (Unsp spec)N/A [facility] Hospitaltool ova and parasites identification by concentrationOrdered By: Imad Asaad on 99-49-5339Fwr and parasites identified Concentration Nom (Stl)N/[facility] Centertool ova and parasites identification by trichrome stainOrdered By: Imad Asaad on 03-31-2023 Ova and parasites identified Trichrome stain Nom (Stl)N/[facility] HospitalC reactive protein [Mass/volume] in Serum or PlasmaOrdered By: Imad Asaad on 72-30-3863CDL [Mass/Vol]1.5 mg/dL0.0-0.5FMcKitrick HospitalErythrocyte sedimentation rate by Photometric methodOrdered By: Imad Asa on 06-20-0192PTJ Photometric method (Bld) [Velocity]17 mm/hr0-14Western [facility] HospitalHIV 1 and HIV-2 antibody assay with HIV-1 p24 antigen detectionOrdered By: Imad Asaad on 13-77-2441ZTN 1+2 Ab+HIV1 p24 Ag IA Ql Non-ReactiveNon ReactiveWestern Reserve HospitalComment on above:HIV NegativeHIV-1/HIV-2 antibodies and HIV-1 p24 antigen were NOTdetected. There is no laboratory evidence of HIV infection.Performed at: [address] [id number] Director: Terell Hoyos PhD, Phone: [phone] [Mass/volume] in Serum or PlasmaOrdered By: ad Asa on 03-20-2213FtR [Mass/Vol]255 mg/dL.[facility] HospitalComment on above:No patient age and/or gender provided or N placed in gender [...] 61 - [phone] 64 - 422Performed at: [id number] [place], [place] [id number] Director: Terell Hoyos PhD, Phone: [phone] Panel InformationOrdered By: Chuck Souza on 73-80-0872Hxrafzuwxs IgA AntibodyNegative NegativeMiami Valley Hospitalerum gliadin peptide IgA antibody assay (units/volume)Ordered By: Chuck Souza on 29-16-8355Uglouwr peptide IgA Qn (S)26 units0-[facility] HospitalComment on above:Negative 0 - 19 Weak Positive 20 - 30 Moderate to Strong Positive >30Serum gliadin peptide IgG antibody assay (units/volume)Ordered By: Chuck Souza on 07-69-4529Hmatzan peptide IgG Qn (S)2 units0-19[facility] HospitalComment on above:Negative 0 - 19 Weak Positive 20 - 30 Moderate to Strong Positive >30Serum tissue transglutaminase (tTG) IgA antibody assay (units/volume)Ordered By: Chuck Souza on 05-79-4969kCE IgA Qn (S)2 U/mL0-3FMcKitrick HospitalComment on above:Negative 0 - 3 Weak Positive 4 - 10 Positive >10 Tissue Transglutaminase (tTG) has been identified as the endomysial antigen. Studies have demonstr- ated that endomysial IgA antibodies have over 99% specificity for gluten sensitive enteropathy.Serum tissue transglutaminase (tTG) IgG antibody assay (units/volume)Ordered By: Chuck Souza on 69-26-9659eBC IgG Qn (S)3 U/mL0-5 [facility] HospitalComment on above:Negative 0 - 5 Weak Positive 6 - 9 Positive >9Thyrotropin [Units/volume] in Serum or PlasmaOrdered By: Chuck Souza on 28-10-9899ROY Qn4.27 m[IU]/L0.45-5.33[facility] Acetaminophenon 51-68-8709Tqyctpizamejl mass conc<61Bva31-84Veptd [facility] CenterComment on above:Performed By: #### ACET ####[address] [address] CBCon 09-94-8176Ervthwiehum distribution width Auto Ratio (RBC)13.3 %Nsjlyh50.5-14.5[facility] on above:Performed By: #### CBC, MG, CMPX ####[address] [address] Erythrocytes (RBC)3.76 10*6/uLLow4.0-5.2[facility] Medical CenterComment on above:Performed By: #### CBC, MG, CMPX ####[place] [phone] (HCT)34.9 %Wrd55-69WioojMetrohealth Main Campus Medical CenterComment on above: Performed By: #### CBC, MG, CMPX ####[address] [address] Hemoglobin mass conc (Bld)11.5 g/dLLow12.0-16.0 [facility] Medical CenterComment on above:Performed By: #### CBC, MG, CMPX ####[address] [address] MCH 30.7 noDgakcx61-85RxuqqMetrohealth Main Campus Medical CenterComment on above:Performed By: #### CBC, MG, CMPX ####[address] [address] MCHC mass conc (RBC)33.0 g/kUTwkytd70-93JmkcvMetrohealth Main Campus Medical CenterComment on above:Performed By: #### CBC, MG, CMPX ####[address] [address] PWW57.0 aHMygpno30-165 TriHealthment on above:Performed By: #### CBC, MG, CMPX ####[place] [address] Platelet mean volume (PMV)6.9 fLNormal6.0-12.0[facility] Medical CenterComment on above:Performed By: #### CBC, MG, CMPX ####[place] [address] Yeskdnpjr773 10*3/bZLgdpaw516-753XaqalMetrohealth Main Campus Medical CenterComment on above:Performed By: #### CBC, MG, CMPX ####[place] [address] WBC (Leukocytes)6.7 10*3/uLNormal3.5-11.0[facility] Medical CenterComment on above:Performed By: #### CBC, MG, CMPX ####[place] [address] Erythrocytes (RBC)NOT REPORTEDNormOhio Valley Hospital Comment on above:Performed By: #### CBC, MG, CMPX ####[address] [address] Comp Metabolic Pr/rfx MG on 11-27-2017(cont.)NormalMetrohealth Main Campus Medical CenterComment on above:Result Comment: Average GFR for 30-39 years old: 107 mL/min/1.73sq mChronic Kidney Disease: <60 mL/min/1.73sq mKidney failure: <15 mL/min/1.73sq meGFR calculated using average adult body mass. Additional eGFR calculator available at:http://www.OpenTrust.GlobalCrypto/multiple_crcl_2012.htmPerformed By: #### CBC, MG, CMPX ####[place] [address] Alanine aminotransferase (ALT)29 U/LNormal5-33[facility] HospitalComment on above:Performed By: #### CBC, MG, CMPX ####[address] [address] Sruanvc1.5 g/dLNormal3.5-5.2[facility] HospitalComment on above:Performed By: #### CBC, MG, CMPX ####[place] [address] Alkaline Phos81 U/LNormal 35-104[facility] Medical CenterComment on above:Performed By: #### CBC, MG, CMPX ####[place] [address] Anion gap9 mmol/LNormal9-17MerKindred Hospital Seattle - First HillComment on above:Performed By: #### CBC, MG, CMPX ####[address] [address] Aspartate aminotransferase (AST)37 U/LHigh<32MerKindred Hospital Seattle - First HillComment on above:Performed By: #### CBC, MG, CMPX ####[place] [address] Bilirubin Ql (U)0.40 mg/dLNormal0.3-1.2[facility] HospitalComment on above:Performed By: #### CBC, MG, CMPX ####[place] [address] BUN/CRE Impgy10Rrmrzy9-69Tzlnf [facility] HospitalComment on above:Performed By: #### CBC, MG, CMPX ####[place] [address] Rwvitun4.2 mg/dLLow8.6-10.4[facility] HospitalComment on above:Performed By: #### CBC, MG, CMPX ####[place] [address] Zsudheak027 mmol/LNormal 98-107[facility] HospitalComment on above:Performed By: #### CBC, MG, CMPX ####[place] [address] IL937 mmol/ADijgqb16-21Kzjgb [facility] CenterComment on above:Performed By: #### CBC, MG, CMPX ####[place] [phone] mg/dLNormal0.50-0.90[facility] Medical CenterComment on above:Performed By: #### CBC, MG, CMPX ####[place] [address] eGFR (non-black)mL/min/{1.73_m2}Normal>60[facility] Medical CenterComment on above:Performed By: #### CBC, MG, CMPX ####[place] [address] Glucose mass conc 107 mg/jYNixi00-74Apswy [facility] HospitalComment on above:Performed By: #### CBC, MG, CMPX ####[place] [address] Potassium molar conc3.5 mmol/LLow3.7-5.3[facility] CenterComment on above:Performed By: #### CBC, MG, CMPX ####[address] [address] Udhkwat9.4 g/dLLow6.4-8.3 [facility] on above:Performed By: #### CBC, MG, CMPX ####[address] [address] Sodium 137 mmol/FUimego684-289RyzqnMetrohealth Main Campus Medical CenterComment on above:Performed By: #### CBC, MG, CMPX ####[place] [address] Urea nitrogen9 mg/dLNormal6-20[facility] Medical CenterComapex medical center on above:Performed By: #### CBC, MG, CMPX ####[address] [address] Albumin/Globulin RatioNOT REPORTED Normal1.0-2.5[facility] on above:Performed By: #### CBC, MG, CMPX ####[place] [address] Staging:NOT REPORTEDNormalCleveland Clinic [facility] Hospital on above:Performed By: #### CBC, MG, CMPX ####[place] [address] Magnesiumon 89-21-1650Ldddejhuf8.9 mg/dLNormal1.6-2.6[facility] on above:Performed By: #### CBC, MG, CMPX ####[place] [address] Basic Metabolic Prof on 11-26-2017(cont.)NormalMetrohealth Main Campus Medical CenterComment on above:Result Comment: Average GFR for 30-39 years old: 107 mL/min/1.73sq mChronic Kidney Disease: <60 mL/min/1.73sq mKidney failure: <15 mL/min/1.73sq meGFR calculated using average adult body mass. Additional eGFR calculator available at:http://www.Lamppost/multiple_crcl_2012.htmAnion gap10 mmol/LNormal9-17 [facility] CenterCalcium8.7 mg/dLNormal8.6-10.4[facility] Ikpmdifb840 mmol/RCjzios43-832HwlptMetrohealth Main Campus Medical CenterCO229 mmol/PSlvfix78-68 [facility] CenterCreatinine0.70 mg/dLNormal0.50-0.90[facility] Medical CentereGFR (non-black)mL/min/{1.73_m2}Normal>60MerKindred Hospital Seattle - First HillGlucose mass conc96 mg/pZTyibnw32-64Lzoii [facility] CenterPotassium molar conc3.6 mmol/LLow3.7-5.3[facility] Centerodium143 mmol/IIidniv388-041HqgmtMetrohealth Main Campus Medical CenterUrea pndmbajo05 mg/dLNormal6-20[facility] CenterBUN/CRE Ratio NOT REPORTEDNormal9-20[facility] Systemtaging:NOT REPORTEDNormalMetrohealth Main Campus Medical CenterCB with Diffon 66-45-2260Zyl. Basophil0.00 k/uLNormal0.0-0.2[facility] CenterAbs.Neutrophil (Seg)2.60 k/uLNormal1.8-7.7[facility] Medical CenterBasophils/100 WBC Auto (Bld)1 %Normal0-2[facility] Eosinophils0.10 10*3/uLNormal0.0-0.4[facility] CenterEosinophils/100 leukocytes3 %Normal1-4[facility] Medical CenterErythrocyte distribution width Auto Ratio (RBC)13.3 %Exhiuk73.5-15.4[facility] Medical CenterErythrocytes (RBC)4.10 10*6/uLNormal4.0-5.2[facility] CenterHematocrit (HCT)37.9 %Jxvrnv43-05 [facility] Medical CenterHemoglobin mass conc (Bld)12.6 g/xHGoyrnb94.0-16.0[facility] Medical CenterLymphocytes2.00 10*3/uLNormal1.0-4.8[facility] Lymphocytes/100 zjtgchuxui36 %Rjnkym50-55PmhbuMetrohealth Main Campus Medical CenterMCH30.7 pgNormal 26-34[facility] Medical CenterMCHC mass conc (RBC)33.3 g/aIZxjqvr69-77PswsrMetrohealth Main Campus Medical CenterMCV92.2 aWSnnkdq27-665ElcrmMetrohealth Main Campus Medical CenterMonocytes0.40 10*3/uL Normal0.1-1.2MercGrays Harbor Community HospitalMonocytes/100 leukocytes8 %Normal2-11[facility] Medical CenterNeutrophil (Seg)49 %Tremhe01-33NazsuMetrohealth Main Campus Medical CenterPlatelet mean volume (PMV)7.4 fLNormal6.0-12.0[facility] Medical CenterPlatelets262 10*3/uL Rhucbh653-898HzsywMetrohealth Main Campus Medical CenterWBC (Leukocytes)5.2 10*3/uLNormal3.5-11.0 [facility] CenterAuto Diff PerformedNOT REPORTEDNormalMetrohealth Main Campus Medical CenterErythrocyte morphologyNOT REPORTEDNoTriHealth Erythrocytes (RBC)NOT REPORTEDNormalMetrohealth Main Campus Medical CenterGranulocytes/100 WBC (Bld)NOT REPORTEDNormal0.00-0.30[facility] CenterImmature granulocytes #/vol (Bld)NOT CKZHZOFEHennnm0VsqtgMetrohealth Main Campus Medical CenterPlateletsNOT REPORTEDNormal [facility] CenterWBC MorphologyNOT REPORTEDProtestant Hospital Drug Scr, Abuse, Uron 08-24-1880Tdejrcxwddh(s),UrNegativeNormalNEGMetrohealth Main Campus Medical CenterComment on above:Result Comment: (Positive cutoff 1000 ng/mL) Barbiturate(s),UrNegativeNormalNEGMercy Forks Community Hospital on above:Result Comment: (Positive cutoff 200 ng/mL)Base excessPositiveAbnormalNEGMercy Forks Community Hospital on above:Result Comment: (Positive cutoff 300 ng/mL) Benzodiazepine(s)NegativeNormalNEGMercy Forks Community Hospital on above:Result Comment: (Positive cutoff 200 ng/mL)Cannabinoid(s),UrNegativeNormalNEGMercy Forks Community Hospital on above:Result Comment: (Positive cutoff 50 ng/mL) Interpretive InfoAssay provides medical screening only. The absence of expected drug(s) and/orNormalMercy Forks Community Hospital on above:Result Comment: metabolite(s) may indicate diluted or adulterated urine, limitations of testing or timing of collection.Testing for legal purposes should be confirmed by another method. To request confirmation of test result, please call the lab within 7 days of sample submission.Opiate(s), UrPositiveAbnormalNEGMercy Forks Community Hospital on above:Result Comment: (Positive cutoff 300 ng/mL) Oxycodone, UrineNegativeNormalNEGMercy Forks Community Hospital on above:Result Comment: (Positive cutoff 100 ng/mL)Phencyclidine, UrNegativeNormalNEGMercy Forks Community Hospital on above:Result Comment: (Positive cutoff 25 ng/mL)Urine, methadone presenceNegativeNormalNEGMercy Forks Community Hospital on above: Result Comment: (Positive cutoff 300 ng/mL)Buprenorphrine, UrNOT REPORTEDNormal NEGMercy Wenatchee Valley Medical CenterMDMA, UrineNOT REPORTEDNormalNEGMercy Wenatche[facility] Valley Medical CenterMethamphetamine, UrNOT REPORTEDNormalNEGMercy [facility] Propoxyphene,UrineNOT REPORTEDNormalNEGMercy Wenatche[facility] Valley Medical CenterUrine, tricyclic antidepressantsNOT REPORTEDNormalNEGMercy Wenatche[facility] Valley Medical CenterEthanol Alcoholon 91-61-7647Jiyosfsqn/dLNormal<10Mer[facility] Medical CenterEthanol percent<0.010 NormalMercy Wenatchee Valley Medical CenterHCG, ,Urineon 35-37-9887JSN.beta subunit ( test) Ql (U)NegativeNormalNEGMercy Wenatchee Valley Medical CenterComment on above: Result Comment: Specimens with hCG levels near the threshold of the test (25 mIU/mL) may give a negative or indeterminate result. In such cases, another test should be performed with a new specimen in 48-72 hours. If early is suspected clinically in this setting, correlation with quantitative serum b-hCG level is suggested.XR CHEST PORTABLEon 80-99-3470HS CHEST PORTABLE EXAMINATION:SINGLE XRAY VIEW OF THE CHEST11/26/2017 8:52 pmCOMPARISON:None.HISTORY:ORDERING SYSTEM PROVIDED HISTORY: overdoseTECHNOLOGIST PROVIDED HISTORY:Reason for exam:->overdoseOrdering Physician Provided Reason for Exam: heroin overdoseAcuity: AcuteType of Exam: InitialAdditional signs and symptoms: NARelevant Medical/Surgical History: NAFINDINGS:No infiltrate or consolidation or effusion is identified. The heart size isnormal.IMPRESSION: Clear lungs.Interpreted by:HOSEA Houigned by:Junior Cortez MD11/26/17inal resultNormalMercy Wenatchee Valley Medical Center Vital Signs Date TimeVital SignValuePerforming HuzdjztwtTkltjtjb25-27-6354 13:44-0400Body mass index (BMI) [Ratio]36.77 kg/m7OpxdlzJazmyne Carreon PENETRATION TESTER-TEXTILE CHEMIST Work Phone: [facility]10-09-2025 13:44-0400Body .95 kgKendra Carreon PENETRATION TESTER-TEXTILE CHEMIST Work Phone: [facility]10-09-2025 13:44-0400Diastolic blood atggwpev06 mm[Hg]Jazmyne Carreon PENETRATION TESTER-TEXTILE CHEMIST Work Phone: [facility]10-09-2025 13:44-0400Heart rate 94 /minJazmyne Carreon PENETRATION TESTER-TEXTILE CHEMIST Work Phone: [facility]10-09-2025 13:44-0400 Respiratory rate16 /minJazmyne Brocker PENETRATION TESTER-TEXTILE CHEMIST Work Phone: [facility] HospitalCloSys Select Specialty HospitalWvydtz30-73-4187 13:44-5054FqI2% (BldA) [Mass fraction]98 %Jazmyne Carreon PENETRATION TESTER-TEXTILE CHEMIST Work Phone: [facility]10-09-2025 13:44-0400Systolic blood impxtwsa207 mm[Hg]Jazmyne Carreon PENETRATION TESTER-TEXTILE CHEMIST Work Phone: [facility]05-08-2025 19:03-0400Diastolic blood famkndfp966 mm[Hg][facility]05-08-2025 19:03-0400 Systolic blood gmabgycv715 mm[Hg][facility]05-08-2025 18:53-0400Body ulegce461.1 cmWestern [facility] Hospital05-08-2025 18:53-0400Body mass index (BMI) [Ratio]41.2 kg/k5PapteknevWestern Reserve Hospital05-08-2025 18:53-0400Body fyxoipwqtln16.9 [degF][facility]05-08-2025 18:53-0400Body dnppav690.49 kgWestern [facility] Hospital05-08-2025 18:53-0400Heart pfkt058 /[facility] 09-29-2024 18:53-0400Respiratory rate16 /[facility] 09-29-2024 18:53-5781BtD3% (BldA) [Mass fraction]97 %[facility]08-20-2024 14:01-0400Body mass index (BMI) [Ratio]31.9 kg/y9Tfixfs Daniamarleedeepali PENETRATION TESTER-TEXTILE CHEMIST Work Phone: [facility]08-20-2024 14:01-0400Body efszkv06.98 kgJazmyne Carreon PENETRATION TESTER-TEXTILE CHEMIST Work Phone: [facility]08-20-2024 14:01-0400Diastolic blood dwyybfhs79 mm[Hg]Jazmyne Brockdeepali PENETRATION TESTER-TEXTILE CHEMIST Work Phone: [facility]08-20-2024 14:01-0400Heart rate 98 /Lauren Daniacurtis PENETRATION TESTER-TEXTILE CHEMIST Work Phone: [facility]08-20-2024 14:01-0400 Respiratory rate18 /minJosiasa Delmyer PENETRATION TESTER-TEXTILE CHEMIST Work Phone: [facility]08-20-2024 14:01-7658QoU7% (BldA) [Mass fraction]100 %Jazmyne Carreon PENETRATION TESTER-TEXTILE CHEMIST Work Phone: [facility]08-20-2024 14:01-0400Systolic blood ukceitdc810 mm[Hg]Jazmyne Carreon PENETRATION TESTER-TEXTILE CHEMIST Work Phone: [facility]01-25-2024 14:12-0500Body mass index (BMI) [Ratio]36.48 kg/o0UtimdqJazmyne Carreon PENETRATION TESTER-TEXTILE CHEMIST Work Phone: [facility]01-25-2024 14:12-0500Body yhuntm571.04 kgJazmyne Carreon PENETRATION TESTER-TEXTILE CHEMIST Work Phone: [phone]-[facility]01-25-2024 14:12-0500Diastolic blood pknhwoyw47 mm[Hg]Jazmyne Carreon PENETRATION TESTER-TEXTILE CHEMIST Work Phone: [facility]01-25-2024 14:12-0500Heart rate 88 /minJazmyne Brocker PENETRATION TESTER-TEXTILE CHEMIST Work Phone: [facility]01-25-2024 14:12-0500 Respiratory rate18 /minJazmyne Carreon PENETRATION TESTER-TEXTILE CHEMIST Work Phone: [phone]-[facility]01-25-2024 14:12-7861LbZ8% (BldA) [Mass fraction]98 %Jazmyne Carreon PENETRATION TESTER-TEXTILE CHEMIST Work Phone: [phone]-[facility]Care[facility]01-25-2024 14:12-0500Systolic blood ykpsvftd282 mm[Hg]Jazmyne Carreon PENETRATION TESTER-TEXTILE CHEMIST Work Phone: [phone]-[facility]11-07-2023 10:19-0500Diastolic blood mm[Hg][facility]11-07-2023 10:19-0500 Heart rate69 /[facility]11-07-2023 10:19-0500 Respiratory rate16 /[facility]11-07-2023 10:19-0500 SaO2% (BldA) [Mass fraction]96 %[facility]11-07-2023 10:19-0500Systolic blood ryssfwxe584 mm[Hg][facility] 03-31-2023 08:14-0500Body xmmose268.26 cm[facility] 03-31-2023 08:14-0500Body wbdreq690.13 kg[facility] 03-02-2023 13:00-0400Body vzcqol365.26 cmImad Asaad Other [facility] Other 10-09-2023 13:00-0400Body mass index (BMI) [Ratio] 36.47 kg/m2Imad Asaad Other [facility] Other 10-09-2023 13:00-0400Body ckvaay303.04 kgImad Asaad Other [facility] Other 10-09-2023 13:00-0400Diastolic blood msqkweha21 mm[Hg] Imad Asaad Other [facility] Other 10-09-2023 13:00-0400Systolic blood ddxpgxos183 mm[Hg] Imad Asaad Other [facility] Other Encounters Encounter DateEncounter TypeCare ProviderFacilityStart: 73-74-7001gfhrukilxterasmo SandovalFacility:[facility] Hospitaltart: 03-02-2025 End: 93-33-5418laqnwocpwiSTVTLNOaklawn [facility] Start: 03-02-2025 End: 18-63-5901Bdadnj outpatient visit 25 minutesJazmyne Carreon APRN-JAMES Work Phone: [facility] HospitalComment on above: Acquired hypothyroidism (Primary Dx); Mixed hyperlipidemia; Drug abuse (CMS-HCC); Anxiety and depression; Heroin addiction (CMS-HCC); Hyperinsulinemia; Severe obesity (BMI 35.0-39.9) with comorbidity (CMS-HCC); Dermatitis; Mental disability; HirsutismStart: 09-29-2024 End: 06-69-4111dagmzjbufvRSP [facility] Work Phone: Start: 09-29-2024 End: 00-96-9477Zijtcbw encounter procedureConem[facility] Work Phone: Start: 08-25-2024 End: 18-39-9507MlhdnxGklbkqs Chavez CMAWay[facility] Hospital [facility] Start: 93-87-4657Nquudzcutb [facility] Start: 01-12-2024 End: 16-35-8434Kfbolra encounter procedureJazmyne Carreon APRN-TEXTILE CHEMIST Work Phone: [facility] Family MedicineComment on above: Encounter for Medicare annual wellness exam (Primary Dx); Acquired hypothyroidism; Mixed hyperlipidemia; Drug abuse (CMS-HCC); Anxiety and depression; Heroin addiction (CMS-HCC); Hyperinsulinemia; Encounter for screening mammogram for malignant neoplasm of breastStart: 12-21-2023 End: 69-99-2581ZaxelgGvclbhc Chavez CMAWay[facility] Hospital [facility] Start: 06-18-2023 End: 99-81-4362Ohquvn outpatient visit 15 minutesJazmyne Carreon APRN-TEXTILE CHEMIST Work Phone: [facility] Family MedicineComment on above: Acquired hypothyroidism (Primary Dx); Mixed hyperlipidemia; Drug abuse (CMS-HCC); Anxiety and depression; Heroin addiction (CMS-HCC); Severe obesity (BMI 35.0-39.9) with comorbidity (CMS-HCC)Start: 05-26-2023 End: 96-39-6808hrvauuxjuhYUMAZ Ranjit JUARESFairfield Medical Centertart: 04-06-2023 End: 29-30-0109lsywsdigxlQgli Asaad [facility] [employer] Other Start: 33-93-1839Xsbwvglmp encounterImad AsaadFPG GastroenterologyStart: 03-31-2023 End: 69-43-8064Frcddfbhg to same day surgery [facility] Work Phone: Start: 03-31-2023 End: 82-17-1150swhzjbmotsVXN [facility] Work Phone: Start: 03-26-2023 End: 68-72-3116waulxztxtkZIESumma Health Ctr Work Phone: Start: 03-26-2023 End: 49-95-5934Lmydvqm encounter procedureDelaware [facility] [place] Work Phone: Start: 03-02-2023 End: 14-89-0339jxtswvixdcTshx Asaad Other [facility] [employer] Other Start: 90-94-3841Pnjiar outpatient new 45 minutesImad AsaadFPG GastroenterologyStart: 06-09-2018 End: 54-78-6582Swbzde encounterKelMcDowell ARH Hospital [facility] CenterStart: 63-59-9540Xfjlvtf encounterDESIREAlireza TAVERAFacility:EFP Start: 11-26-2017 End: 92-02-9043Kqgvjzbspi and management of inpatientTODD P [facility] Hospitaltart: 78-85-5176Mqcbnzo encounter statusJazmyne Carreon PENETRATION TESTER-TEXTILE CHEMIST Work Phone: ProSt. Mary[facility] CampusCloSys [facility] Work Phone: Procedures DateProcedureProcedure DetailPerforming ClinicianStart: 48-59-8236Apczh depression screening assessmentJazmyne Lauri PENETRATION TESTERCallidusCloudFAIRLAWN RE[facility]ILITATION [facility] Work Phone: Start: 91-92-3776Tflnq depression screening assessment Jamzyne Najeracurtis [facility] CENTERCallidusCloudFAIRLAWN REHABIL[facility] Work Phone: Start: 45-24-9346Iazoqweab ova-parasite examination, fecalStart: 43-86-3381Nir and Parasite Result 1Start: 30-72-5899Mhn OR parasites identificationStart: 30-59-3295FirycsqrccoMaqfa: 93-40-3213Lftgu depression screening assessmentJazmyne Wellsjimbo [facility] CENTERCallidusCloudFAIRLAWN [facility] Work Phone: Start: 84-12-5903Hrmarutzddm observation [Identifier] in Cervix by Cyto stainKendra Carreon [facility] CENTERCallidusCloudFAIRLAWN [facility]IL[facility] Work Phone: Start: 14-81-0198FQGHMQKWM PATIENTTODD FRANCISStart: 53-28-0329OODYQXQY OXYGEN THERAPY PROTOCOLTODD Start: 80-18-5387WREM GENERALTODD Start: 17-36-7182Wdcik of magnesiumTODD Start: 41-26-6097Ofshx count complete automatedTODD Start: 11-27-2017 COMPREHENSIVE METABOLIC PANEL W/ REFLEX TO MG FOR LOW KTODD FRANCISStart: 11-03-4992VUQ 12-LEADTODD Start: 32-02-6966FFQ REPORTTODD Start: 95-55-4221IBSZMOXQRBDNX LEVELTODD Start: 92-64-4147JCXXJQJ STATUS (FROM ED OR OR/PROCEDURAL)BRIT art: 19-82-7967QLXGJTFY OXYGEN THERAPY PROTOCOLTODD Start: 51-47-4843LYJMOVS COMMUNICATIONTODD Start: 98-38-7262JOEYU INTERMITTENT PNEUMATIC COMPRESSION DEVICETOStart: 72-85-3560MCLJYMU CESSATION EDUCATIONTOStart: 45-88-3879WLIBYKO DIET TOLERATED (NURSING COMMUNICATION)BRIT Start: 16-18-5680KEGRU WEIGHTS BRIT Start: 19-94-7699JFBZ CODETODD Start: 05-13-3942WHEKBK AND OUTPUTTOart: 74-36-7935NRSONVDSYBUYI NURSING CARE ORDER (SPECIFY) BRIT art: 64-72-1556QZOFZK PHYSICIAN (SPECIFY)BRIT art: 66-39-1342RTFQWJVUZ MONITORINGTOart: 15-84-8193LBEAW SIGNSTODICK art: 65-76-0637RIEAIXWT PATIENTTOart: 57-64-5669MJKBVTN STATUS (DIRECT)BRIT art: 41-10-7180QZCTICI STATUS (FROM ED OR OR/PROCEDURAL)BRIT art: 50-56-2607NOHACD PERIPHERAL IVTODICK HURD Start: 43-53-6627Wwwnpqjxvs exam chest single viewTOart: 11-26-2017 URINE DRUG SCREENTOart: 03-50-9994Ufotl test visual color cmprsn methsTODD art: 05-01-5468Qxepi metabolic panel calcium totalTOart: 43-46-8787Qhvul count complete auto&auto difrntl wbcTODD VICKEY Start: 97-32-2768XQTVQIDGOIX FRANCISStart: 62-28-1321GBQ 12-LEADTODICK HURD Start: 33-84-8235NYH REPORTTODICK HURD Plan of Treatment DateCare ActivityDetailAuthorStart: 03-50-5616LIlF,Tdap and Td Vaccines (2 - Td or Tdap)DTaP,Tdap and Td Vaccines (2 - Td or Tdap)[facility] SystemStart: 33-61-0522Fobdv BMI ScreeningAdult BMI ScreeningProPromedica Fostoria Community [facility] SystemStart: 23-65-1936Pserhyjeil ScreeningDepression ScreeningProPromedica Fostoria [facility] SystemStart: 34-33-7059Pyquetr ScreeningTobacco ScreeningSelect Medical [facility] Rehabilitation Hospital SystemStart: 04-26-2025 End: 74-51-7526Hxmetfv encounter ruppxmubw98/03/2025 1:30 PM EST Office Visit [facility] [address], [id number] Jazmyne Carreon, PENETRATION TESTER-TEXTILE CHEMIST [address] [place] [address] [facility] MedicineStart: 03-02-2025 End: 47-51-3348HCS W Auto Differential panel - BloodCBC auto differential Lab Routine Mixed hyperlipidemia Expected: 03/02/2025, Expires: 03/02/2026[facility] SystemComment on above:Expected: 03/02/2025, Expires: 03/02/2026Start: 03-02-2025 End: 34-43-4900Agrykgqzab A1c/Hemoglobin.total in BloodHemoglobin A1c Lab Routine Hyperinsulinemia Expected: 03/02/2025, Expires: 03/[facility]/2026[facility] Work Phone: comment on above:Expected: 03/02/2025, Expires: 03/02/2026Start: 03-02-2025 End: 73-10-6555Wqimr 1996 panel - Serum or PlasmaLipid profile Lab Routine Mixed hyperlipidemia Expected: 03/02/2025, Expires: 03/02/2026[facility] Comment on above:Expected: 03/02/2025, Expires: 03/02/2026Start: 03-02-2025 End: 77-56-5541Tdauaac profile includes TSH UK2Trgmhgk profile includes TSH FT4 Lab Routine Acquired hypothyroidism Expected: 03/02/2025, Expires:03/02/[address]26 [facility]Comment [facility]:Expected: 03/02/2025, Expires: 03/02/2026Start: 98-48-0545Xixltqsui vaccinationInfluenza VaccineAdventHealthtart: 01-17-2025 End: 63-58-3600Vrynvjh encounter /26/2025 1:30 PM EDT [facility] [address], [phone] Jazmyne Carreon, PENETRATION TESTER-TEXTILE CHEMIST [address] [place], [place] [id number] [facility] MedicineStart: 56-88-8206Kqpwm BMI Follow Up PlanAdult BMI Follow Up PlanSelect Medical TriHealth Rehabilitation Hospital SystemStart: 69-54-3991Ypsfq BMI ScreeningAdult BMI ScreeningAdventHealthtart: 02-42-3125Mcdrziqtkk ScreeningDepression ScreeningAdventHealthtart: 78-36-4683Nzdyugd ScreeningTobacco ScreeningSt. Elizabeth Hospital Start: 91-00-1157Kfiku BMI Follow Up PlanAdult BMI Follow Up PlanAdventHealthtart: 80-51-2112Jzcbj BMI ScreeningAdult BMI ScreeningAdventHealthtart: 68-62-4985Fouflhm ScreeningTobacco ScreeningAdventHealthtart: 52-29-2959Vnafj BMI Follow Up PlanAdult BMI Follow Up Plan [facility]althtart: 74-41-9569Dmodm BMI ScreeningAdult BMI Screening [facility]htart: 86-41-4842Pdqpnkh ScreeningTobacco Screening AdventHealthtart: 01-29-2024 End: 54-47-4740Qkfsbpr encounter uhvtmdclb26/06/2024 10:15 AM EDT Appointment [facility] - Mammogram DEXA [address] [place] [address] [facility]Ep[facility]guBl[facility] Start: 42-63-4342OVGMI-19 Vaccine ( season)COVID-19 Vaccine ( season)[facility]art: 10-25-0907Aoegkebli vaccination Influenza VaccineAdventHealthtart: 01-12-2024 End: 30-26-7837RUW W Auto Differential panel - BloodCBC auto differential Lab Routine Mixed hyperlipidemia Expected: 01/12/2024, Expires: 01/11/2025Pro[facility] Work Phone: comment on above:Expected: 01/12/2024, Expires: 01/11/2025Start: 01-12-2024 End: 31-15-7201FNQ Breast - bilateral screeningMammography screening bilateral with CAD Imaging Routine Encounter for screening mammogram for malignant neoplasm of breast Expected: 01/12/2024, Expires: 01/11/2025[facility] SystemComment on above:Expected: 01/12/2024, Expires: 01/11/2025Start: 01-12-2024 End: 92-93-7452Mgapdkrtds A1c/Hemoglobin.total in BloodHemoglobin A1c Lab Routine Hyperinsulinemia Expected: 01/12/2024, Expires: 01/11/2025[facility] HospitalComment on above:Expected: 01/12/2024, Expires: 01/11/2025Start: 01-12-2024 End: 86-38-5254Ydrbv 1996 panel - Serum or PlasmaLipid profile Lab Routine Mixed hyperlipidemia Expected: 01/12/2024, Expires: 01/11/2025[facility] Comment on above:Expected: 01/12/2024, Expires: 01/11/2025Start: 01-12-2024 End: 51-40-6021Nxixlfg encounter ldeydiapc39/20/2024 2:00 PM EDT Office Visit [facility] [address], [phone] Jazmyne Carreon APRN-TEXTILE CHEMIST [address] [place] [address] More[facility] Chou [facility] MedicineStart: 01-12-2024 End: 75-66-4429Vgxobjw profile includes TSH JE9Vvrkckt profile includes TSH FT4 Lab Routine Acquired hypothyroidism Expected: 01/12/2024, Expires:01/11/2025 [facility] HospitalComment on above:Expected: 01/12/2024, Expires: 01/11/2025Start: 12-21-2023 End: 35-77-9116Kmwizbr encounter vvljokqsp52/29/2024 10:30 AM EDT Office [facility] [address] [place] [address] Jazmyne Carreon APRN-TEXTILE CHEMIST [address] [place] [address] Moreno Chou [facility] MedicineStart: 69-41-2276Hikjqradrw ScreeningDepression ScreeningAdventHealthtart: 73-42-6272Anx and Parasite Concentrate ExamOva and Parasite Concentrate Exam [facility]tart: 66-79-8137EpnlicodxMiami Valley Hospitaltart: 31-13-2366QnlkdlssjDelaware County Hospital CenterStart: 03-26-2023 [facility] Hospitaltart: 26-78-0616JCALV-19 Vaccine ( season)COVID-19 Vaccine ( season)[facility] SystemStart: 59-62-6814Luczrswkg vaccinationInfluenza VaccineSelect Medical TriHealth Rehabilitation Hospital SystemStart: 60-39-2228Zlyhinako for malignant neoplasm of cervixPap SmearSelect Medical TriHealth Rehabilitation Hospital SystemStart: 00-40-2794Roqfvvflk vaccinationINFLUENZA VACCINE (#1)[facility] Work Phone: Start: 77-03-1019Xyjjehbnv for malignant neoplasm of cervixPAP SMEAR [facility] Work Phone: Start: 25-15-2477JVfD,Tdap and Td Vaccines (1 - Tdap) DTaP,Tdap and Td Vaccines (1 - Tdap)[facility] SystemStart: 2001 Third diphtheria, tetanus and acellular pertussis (DTaP) vaccinationTDAP (ADULT) [facility] Work Phone: Start: 31-46-3937Nxyebci vaccinationTETANUSVeterans Health Administration Work Phone: Start: 36-73-5067RGY screeningHIV SCREENING DISCUSSION [facility] Work Phone: bacteria identified in Stool by CultureWestern Reserve HospitalCalprotectin [Mass/mass] in StoolWestern Reserve Hospital End: 12-41-3428Xvqdccounmkms metabolic 2000 panel - Serum or PlasmaComprehensive metabolic panel Lab Routine Mixed hyperlipidemia 1 Occurrences starting 01/12/2024 until 01/11/2025[facility] SystemComment on above:1 Occurrences starting 01/12/2024 until 01/11/2025 End: 05-03-0980Zdfzhkxhensgw metabolic 2000 panel - Serum or PlasmaComprehensive metabolic panel Lab Routine Mixed hyperlipidemia 1 Occurrences starting 03/02/2025 until 03/02/2026[facility] HospitalComment on above:1 Occurrences starting 03/02/2025 until 03/02/2026Endomysial antibody IgA levelWestern Reserve HospitalGliadin peptide IgA Ab [Units/volume] in SerumWestern Reserve HospitalGliadin peptide IgG Ab [Units/volume] in [facility] HospitalHIV 1+2 Ab+HIV1 p24 Ag [Presence] in Serum or Plasma by ImmunoassayWestern Reserve HospitalIgA [Mass/volume] in Serum or Plasma [facility] End: 04-51-8084MbqftnuPodxghp Lab Routine Hyperinsulinemia 1 Occurrences starting 01/12/2024 until 01/11/2025[facility] HospitalComment on above:1 Occurrences starting 01/12/2024 until 01/11/2025 End: 69-75-0732ErvkresVcfbwiq Lab Routine Hyperinsulinemia 1 Occurrences starting 03/02/2025 until 03/02/2026ProSelect Medical Specialty Hospital - Cincinnati NorthComment on above:1 Occurrences starting 03/02/2025 until 03/02/2026Tissue transglutaminase IgA Ab [Units/volume] in [facility] Rita's HospitalTissue transglutaminase IgG Ab [Units/volume] in [facility] Immunizations Immunization DateImmunizationNotesCare CbwrhtfeNzrjxawd39-39-8603HDLWX-81, mRNA, LNP-S, PF, 30mcg/0.3mL DoseKendra Schlachter PENETRATION TESTER-TEXTILE CHEMIST Work Phone: [facility] HospitalKkaquk17-86-7334Lsmkbwikw Vaccine, Quadrivalent, AdjuvantedKendra Schlachter PENETRATION TESTER-TEXTILE CHEMIST Work Phone: [facility] HospitalZvxomr07-29-5601sgjdaispt virus vaccine, unspecified formulationKendra Schlachter PENETRATION TESTER-TEXTILE CHEMIST Work Phone: [facility] HospitalZmmbxe56-81-6366fpkqckwei virus vaccine, unspecified formulationKendra Schlachter PENETRATION TESTER-TEXTILE CHEMIST Work Phone: [facility] HospitalKdepjn04-88-4434oqpzpzzpe virus vaccine, unspecified formulationKendra Schlachter PENETRATION TESTER-TEXTILE CHEMIST Work Phone: [facility] HospitalLmadfu71-71-9558qtsqrsgxx, seasonal, injectable, preservative freeKendra Schlachter PENETRATION TESTER-TEXTILE CHEMIST Work Phone: [facility] Payers DatePayer CategoryPayerPolicy ID2023Self-pay2023Medicare O [employer] MEDICARE [id number] Health Insurance [id number] [id number] [id number] MedicaidMEDICAID [facility] MED[facility] [id number] 2017-Present [phone] [address] [place] [id number] [id number] 2012Medicare [id number] Social History DateTypeDetailFacilityTobacco smoking status NHISUnknown if ever smokedVeterans Health Administration Work Phone: Start: 28-45-6654Zag Assigned At BirthNot on fileVeterans Health Administration Work Phone: Start: 07-04-2020 End: 02-72-3262Cgl Assigned At BirthProOhioHealth Riverside Methodist Hospitaltart: 66-39-6316Jwf Assigned At BirthProMedica Toledo Hospitaltart: 68-86-4116Tzhpyea smoking status NHISNever smoked tobaccoSelect Medical TriHealth Rehabilitation Hospital SystemStart: 06-18-2023 End: 79-10-1094Cyuvarj intakeCurrent non-drinker of alcohol (finding)[facility] 07-04-2020 End: [id number] intakeSt. Elizabeth HospitalAdol[facility]win [facility] depression screening [id number]t: [phone] (finding) [facility]: [id number] sex unknown (finding) [facility] Goals DatePatient GoalDesired Activity/State Clinical Notes 03-02-2023 to 03-02-2025 Note Date & [id number] History of Present illness Narrative* Jazmyne Carreon, ANT-TEXTILE CHEMIST - 03/02/2025 1:30 PM EDT Images from the original note were not included. [address] [place] [id number] SUBJECTIVE: Patient ID: Nilsa Pulido is a 44 y.o. female. Patient presents to the office with friend. She has a rash on left side of neck- was given steroid and no with no relief. Will refer to dermatology could be psoriasis. She also needs her toenails trimmed. Gave information for podiatry to friend. She is overdue for lab work as well. Rash Pertinent negatives include no congestion, cough, diarrhea, eye pain, fatigue, fever, shortness of breath, sore throat or vomiting. The following portions of the patient's history were reviewed and updated as appropriate: allergies, current medications, past family history, past medical history, past social history, past surgicalhistory and problem list. REVIEW OF SYSTEMS: Review [...] problem, joint swelling and neck pain. Skin: Positive for rash. Negative for pallor. Neurological: Negative for dizziness, weakness, light-headedness and numbness. Psychiatric/Behavioral: Negative for sleep disturbance. The patient is not nervous/anxious. PHYSICAL EXAMINATION: Vitals: 03/02/25 1344 BP: 140/80 Pulse: 94 Resp: 16 SpO2: 98% Weight: 112.9 kg (249 lb) Physical Exam Constitutional: Appearance: She is [...] Skin: General: Skin is warm and dry. Findings: Rash present. Neurological: Mental Status: She is alert and oriented to person, place, and time. Psychiatric: Mood and Affect: Mood normal. ASSESSMENT/PLAN: Nilsa was seen today for rash. Diagnoses and all orders for this visit: Acquired hypothyroidism - Thyroid profile includes TSH FT4; Future Mixed hyperlipidemia - CBC auto differential; Future - Comprehensive metabolic panel; Future - Lipid profile; Future Drug abuse ([facility]) Anxiety and depression Heroin addiction ([facility]) Hyperinsulinemia - Hemoglobin A1c; Future - Insulin; Future Severe obesity (BMI 35.0-39.9) with comorbidity ([facility]) Dermatitis Mental disability Hirsutism Follow-up: Cbc,cmp,lipid,hemoglobin A1c, thyroid, insulin Will call with results Follow up in two months ALEXANDRO White 03/02/25 1428 documented in this encounterLicking Memorial HospitalCloSys Select Special[facility] [id number] History of Present illness Narrative* ALEXANDRO White - 01/12/2024 2:00 PM EDT Images from the original note were not included. [address] [facility] [id number] Subjective: Nilsa Pulido is a 43 y.o. female who presents for a Medicare Annual Wellness exam. The following portions of the patient's history were reviewed and updated as appropriate: Health Risk Assessment, allergies, past medical history, past surgical history, social history, family history, and immunization history Accompanied by: self History Provided By: self Language and Other Communication Barriers: Primary Language Spoken: Chinese Highest Level of Education Completed: some college [...] Do you have a durable power of forging operator?: (!) No Fall Risk Fall Risk Assessment [...] of yes answers would provide a composite measureof non-adherence. Higher scores indicate higher adherence. Cognitive [...] Cycle 19.2-103 mIU/mL Luteal 1.2-12.9 mIU/mL Post Sara 10.9-58.6 mIU/mL Follicle stimulating hormone 05/26/2023 5.1 [...] exam Acquired hypothyroidism Mixed hyperlipidemia Drug abuse ([facility]) Anxiety and depression Heroin addiction ([facility]) Hyperinsulinemia Patient noted to have elevated BMI and the following intervention(s) were applied: encouragement toexercise. Follow Up: CBC,CMP, lipids, thyroid- will call with results Mammogram- to schedule Follow up in the office in 12 months and as needed ALEXANDRO White 01/12/24 1431 documented in this encounterLicking Memorial HospitalRipple Networks [id number] History of Present illness Narrative* ALEXANDRO White - 06/18/2023 2:30 PM EST Images from the original note were not included. [address] [place] [address] SUBJECTIVE: Patient ID: Nilsa Pulido is a 43 y.o. female. Patient presents to the office for routine check up. She is doing well with no complaints. She has lost almost ten pounds since her last appointment. She is working on [employer]. She is still seeing psychiatry and doing well. Follow-up Pertinent negatives include no abdominal pain, arthralgias, chest pain, congestion, coughing, fatigue, fever, joint swelling, nausea, neck pain, numbness, rash, sore throat, vomiting or weakness. The following portions of the patient's history were reviewed and updated as appropriate: allergies, current medications, past family history, past medical history, past social history, past surgicalhistory and problem list. REVIEW OF SYSTEMS: Review [...] visit: Acquired hypothyroidism Mixed hyperlipidemia Drug abuse (CMS-HCC) Anxiety and depression Heroin addiction ([facility]) Severe obesity (BMI 35.0-39.9) with comorbidity ([facility]) Other orders - levothyroxine (SYNTHROID, LEVOTHROID) 50 MCG tablet; Take 1 tablet (50 mcg total) by mouth in themorning. Follow-up: Refilled levothyroxine 50mcg daily Follow up in six months for routine medicare wellness Keep appointments with psychiatry Great work on weight loss! Patient noted to have elevated BMI and the following intervention(s) were applied: encouragement toexercise. ALEXANDRO White 06/18/23 1434 documented in this encounterNorthwestern Medical CenterBasewin Technology [id number] Procedure note [facility]10-09-2023 Evaluation note* Encounter Date Diagnosis Assessment Notes Treatment Notes Treatment Clinical Notes Feb, Diarrhea (ICD-10 - R19.7) Feb,Hemorrhoid (ICD-10 - K64.9) [facility] Other Evaluation noteNo assessment information available [facility] Work Phone: Evaluation noteNo InformationNortPenn State Health [facility] Other Evaluation note* Diagnosis Acquired hypothyroidism- Primary Unspecified hypothyroidism Mixed hyperlipidemia Drug abuse (CMS-HCC) Other, mixed, or unspecified nondependent drug abuse, unspecified Anxiety and depression Heroin addiction ([facility]) Opioid type dependence, unspecified abuse Severe obesity (BMI 35.0-39.9) with comorbidity ([facility]) documented in this encounter [facility]* Diagnosis Encounter for Medicare annual wellness exam- Primary Acquired hypothyroidism Unspecified hypothyroidism Mixed hyperlipidemia Drug abuse ([facility]) Other, mixed, or unspecified nondependent drug abuse, unspecified Anxiety and depression Heroin addiction ([facility]) Opioid type dependence, unspecified abuse Hyperinsulinemia Encounter for screening mammogram for malignant neoplasm of breast documented in this encounter [facility]* Diagnosis Acquired hypothyroidism- Primary Unspecified hypothyroidism Mixed hyperlipidemia Drug abuse ([facility]) Other, mixed, or unspecified nondependent drug abuse, unspecified Anxiety and depression Heroin addiction ([facility]) Opioid type dependence, unspecified abuse Hyperinsulinemia Severe obesity (BMI 35.0-39.9) with comorbidity ([facility]) Dermatitis Contact dermatitis and other eczema, due to unspecified cause Mental disability Unspecified mental retardation Hirsutism documented in this encounter [facility]MW[facility] SystemHistory and physical note Author Chuck Souza [facility] March 31, 2023 9:28amNote Date/TimeMarch 31, 2023 9:29[place] [address] Gastroenterology H&P Signed Patient: Nilsa Pulido MR #: [id number] : 1980 Acct:[id number] Age/Sex: 42 / F Adm Date: 3 Loc: Room: Type: [facility] Attending Dr: Chuck Souza MD Copies to: NON STAFF Chuck Souza MD~ Date of Service: 03/31/2023 HISTORY & PHYSICAL: Patient's history with special attention to the cardiovascular, pulmonary systems and the current problem was reviewed with the patient immediately prior to the procedure. Present medications and doses reviewed in the EMR. Allergies and pertinent laboratory tests were also re viewedat this time in the EMR. The physical [...] <Electronically signed by Chuck Souza MD> 03/31/23927 [facility] Work Phone: History general Narrative - Reported* Type Description Date Medical History chronic depression Medical HistoryHypothyroidismSurgical Historykidney stoneHospitalization History see above [facility] Other Hospital Discharge instructions Additional Instructions DISCHARGE [...] -Follow up in the office -Office number [phone]. [facility] Work Phone: Instructions* Attachments The following attachments cannot be sent through Care Everywhere. * Hypothyroidism (underactive thyroid) (Chinese) documented in this encounterSelect Medical [facility] Rehabilitation Hospital SystemInstructionsNot on file documented in this [facility] RehabilitationInstructions* Attachments The following attachments cannot be sent through Care Everywhere. * Hypothyroidism (underactive thyroid) (Chinese) documented in this encounterSelect Medical [facility]Health Rehabilitation Hospital SystemInstructions* Attachments The following attachments cannot be sent through Care Everywhere. * Hypothyroidism (underactive thyroid) (Chinese) documented in this [facility] Summary Purpose Family History No Family History Records Found Relationship Condition Age at Onset Recorded Date/T judah family member Dementia Unknown Myocardial infarctionUnknownNot SpecifiedDiabetes mellitusUnknown Relationship Condition Age at Onset Recorded Date/T judah family member Dementia Unknown Myocardial infarctionUnknownmotherDiabetes mellitusUnknownfatherDeceasedUnknown Advance Directives No Advanced Directives Records Found [...] section and content) DATE CREATED AUTHOR 11/27/2017 [facility] DATE CREATED AUTHOR AUTHOR'S ORGANIZ ATION 03/19/2018 [facility] DATE CREATED AUTHOR AUTHOR'S ORGANIZ ATION 05/30/2023 [facility] DATE CREATED AUTHOR AUTHOR'S ORGANIZ ATION 03/04/2025 [facility] DATE CREATED AUTHOR AUTHOR'S ORGANIZ ATION 03/16/2025 [facility] REASON FOR VISIT (unrecogniz ed section and content) ReasonCommentsFollow-upReasonOnset DateCommentsMed Zbbofp7412/21/2023eason CommentsAnnual ExamReasonOnset DateCommentsMed Dnveau4008/25/2024ReasonComments Rash Care Teams (unrecognized sec tion and content) Team Status: Active Member Role Status Dates NON STAFF Primary Care Provider Active Team Status: Active Member Role Status Dates NON STAFF Primary Care Provider Active Start: August 23, 2024 Song Masters ProviderActiveStart: August 23, 2024 Team Status: Inactive Member Role Status Dates NON STAFF Primary Care Provider Active Start: September 29, 2024 End: September 29, 2024Lisa Reddy ProviderActiveStart: September 29, 2024 End: September 29, 2024 Team Status: Inactive Member Role Status Dates NON STAFF Primary Care Provider Active Song Blancas ProviderActiveTeam MemberRelationshipSpecialtyStart DateEnd Date Jazmyne Carreon APRN-TEXTILE CHEMIST [address] [place] [address] PCP - GeneralFamily Medicine01/13/20Team MemberRelationshipSpecialtyStart DateEnd Date Jazmyne Carreon APRN-TEXTILE CHEMIST [address] [place] [address] PCP - GeneralFamily Medicine01/13/20Team MemberRelationshipSpecialtyStart DateEnd Date Jazmyne Carreon APRN-TEXTILE CHEMIST [address] [place] [address] PCP - GeneralFamily Medicine01/13/20Team MemberRelationshipSpecialtyStart DateEnd Date Jazmyne Carreon APRN-JAMES [address] [place] [address] PCP - [facility]01/13/20Team MemberRelationshipSpecialtyStart DateEnd Date Jazmyne Carreon APRN-JAMES [address] [place] [address] PCP - [facility]01/13/20 Goals (unrecognized section and content) Goals may [...] BE BASED ON THE PRIMARY CLINICAL RECORDS. [facility]. provides no warranty or guarantee of the accuracy or completeness of information in this document.
[2025-04-04 11:46] LABS: Hematocrit 40.6 % (36.0-48.0); Hemoglobin 13.7 g/dL (12.0-16.0); Immature Granulocytes Abs Auto 0.07 10^3/uL (0.00-0.03); Immature Granulocytes Pct Auto 0.8 % (0.0-0.5); Lymphocytes Absolute Auto 2.9 10^3/uL (1.2-3.8); Mean Corpuscular HGB Conc 33.7 g/dL (29.9-35.2); Mean Corpuscular Hemoglobin 30.0 pg (26.7-34.0); Mean Corpuscular Volume 88.8 fL (81.0-99.0); Platelet Count 357 10^3/uL (150-450); Red Blood Count 4.57 10^6/uL (4.20-5.40); White Blood Count 8.9 10^3/uL (4.0-11.0)
[2025-04-04 12:02] LABS: Alanine Aminotransferase 38 U/L (14-59); Albumin Globulin Ratio 1.1; Albumin Level 3.7 g/dL (3.4-5.0); Alkaline Phosphatase 85 U/L (46-116); Anion Gap 9.8; Aspartate Amino Transferase 14 U/L (15-37); Blood Urea Nitrogen 11.0 mg/dL (7.0-18.0); Calcium 9.0 mg/dL (8.5-10.1); Carbon Dioxide 29.9 mmol/L (21.0-32.0); Chloride 103 mmol/L (98-107); Cholesterol 225 mg/dL (<=200); Estimated GFR (African America >60 (>=60 mL/min/1.73m^2); Estimated GFR (Non-African Ame >60 (>=60 mL/min/1.73m^2); Globulin 3.3 g/dL; Glucose 86 mg/dL (74-106); HDL Cholesterol 43 mg/dL (40-60); Potassium 3.7 mmol/L (3.5-5.1); Sodium 139 mmol/L (136-145); Thyroid Stimulating Hormone 4.480 uIU/mL (0.358-3.740); Total Protein 7.0 g/dL (6.4-8.2); Triglycerides 181 mg/dL (<=150); VLDL CHOLESTEROL 36.2 mg/dL
== END 2025-04-04 10:56 | disposition home or self-care (01) ==
PROVIDERS: PCP Nurse Practitioner Family; Visit Provider Nurse Practitioner Family
DX: E16.1 Other hypoglycemia (principal); E78.2 Mixed hyperlipidemia; E03.9 Hypothyroidism, unspecified
CPT/HCPCS: 36415; 80053; 80061; 83036; 83525; 84439; 84443; 85025